=== PATIENT | female | born 1955 | race Caucasian/White ===

== ENCOUNTER 2017-08-10 02:04 | Emergency (ER) | payer BC ==
[2017-08-10] MEDS ORDERED: Iopamidol 370 76% 100 ML VIAL ONE (09:00)
[2017-08-10 15:01] LABS: CKMB 1.1 ng/mL (0-6.6); Troponin I Less than 0.010 ng/mL (< 0.028)
[2017-08-10 15:02] LABS: Anisocytosis SLIGHT = 6-15 cells (100X) (0-5/hpf); Band 33 % (5-11); Hemoglobin 8.4 g/dL (12.0-16.0); Hypochromia SLIGHT = 6-15 cells (100X) (0-5/hpf); Lymphocytes 3 % (21-51); MDiff Complete? YES; Mean Corpuscular HGB CONC 32.7 g/dL (32.0-36.0); Mean Corpuscular Hemoglobin 28.6 pg (27.0-31.0); Mean Corpuscular Volume 87.5 fl (81.0-99.0); Mean Platelet Volume 8.9 fL (7.4-10.4); Monocytes 6 % (0-10); Neutrophil 51 % (42-75); PLT Morphology Comment Appears Decreased; Platelet Count 74 thou/uL (130-400); Polychromasia SLIGHT = 2-3 cells (100X) (0-2/hpf); RBC Distribution Width 14.6 % (11.5-14.5); Reactive Lymphocytes 3 % (0-10); Red Blood Cell (RBC) Count 2.94 mill/uL (4.20-5.40); Reflex for Review?? YES; Tear Drops SLIGHT = 2-5 cells (100X) (0-1/hpf); White Blood Cell (WBC) Count 6.7 thou/uL (4.8-10.8)
--- NOTE | 2017-08-10 15:36 | CT ---
CT ARTERIOGRAM CHEST WITH IV CONTRAST AND 3D MIP IMAGING: Date: 08/10/17 HISTORY: Chest pain. FINDINGS: There is good contrast opacification of the pulmonary arteries and thoracic aorta with normal branchi ng of the great vessels from the aortic arch. No pleural fluid or pneumothorax are apparent. Enlarged lymph node at the right hilum measures up to 2.6 cm. Enlarged precarinal lymph node is 2.8 cm. Subca rinal lymph node measures up to 3.2 cm. Visualized portions of the upper abdomen show enlargement of the spleen to 18.0 cm. IMPRESSION: 1. No CT evidence of pulmonary embolus. 2. Enlarged mediastinal lymph nodes. 3. Severe splenomegaly. POS: [facility]
--- NOTE | 2017-08-10 16:58 | CT ---
CT ABDOMEN AND PELVIS WITH IV CONTRAST: 08/10/17 HISTORY: Fever. Abdominal pain. FINDINGS: Spleen is enlarged, at greater than 18 cm. Small wedge shaped areas of decreased density to the poste rior surface of the posterior aspect of the spleen measure up to 2.6 cm at the base. There is duplica tion of the renal collecting systems and ureters. Calcification apparent throughout the arterial stru ctures. Nonspecific lymph nodes are scattered throughout the abdomen and pelvis. Urinary bladder is u nremarkable. Lobulated mass at the right side of the uterus has the appearance of a fibroid. Lack of oral contrast limits evaluation of the bowel. There is no evidence of obstruction. Appendix i s not inflamed. IMPRESSION: 1. Severe splenomegaly. Wedge shaped areas of peripheral low density are likely related to splen ic infarcts. 2. Atherosclerosis. POS: [facility]
== END 2017-08-10 16:50 | disposition home or self-care (01) ==
LOC: SCSER 02:04 → ERS 14:01 → SCSER 16:50
DX: R16.1 Splenomegaly, not elsewhere classified (principal); D69.6 Thrombocytopenia, unspecified; R50.9 Fever, unspecified; I10 Essential (primary) hypertension; E78.5 Hyperlipidemia, unspecified
CPT/HCPCS: 36415; 71275; 74177; 82553; 83605; 84484; 85025; 85060; 85379; 87040; 93005; 94760

== ENCOUNTER 2017-08-26 13:36 | Outpatient (CLI) | payer BC ==
--- NOTE | 2017-08-26 17:00 | PET ---
PET CT: Date: 08/26/17 HISTORY: 62-year-old female with diffuse large B-cell lymphoma, extranodal and solid organ sites. Exam request ed for initial staging. TECHNIQUE: PET scanning with CT attenuation was performed from the base of the brain through the proximal thighs following the intravenous administration of 12 mCi F18-FDG in the left antecubital fossa. Imaging wa s performed after an uptake interval of 48 minutes. COMPARISON: None. CORRELATION: CT chest and abdomen dated 08/10/17. FINDINGS: Numerous hypermetabolic lymph nodes are seen, including the neck (maximum SUV 19 on the right), media stinum (SUV 17.4 subcarinal region), bilateral axillary (maximum SUV 8.4 on the left), right hilar (S UV 13.2), left paraaortic (SUV 7.8), left common iliac (SUV 7.8), left internal iliac (SUV 6.8), left external iliac (SUV 15.9), left obturator (SUV 15.3), and left inguinal (SUV 2.7) lymph nodes. There is diffusely increased uptake in the spleen with a maximum SUV of 14.4. There is focal hypermet abolic area in the tail of the pancreas with a SUV of 12. Hypermetabolic osseous lesions include the left iliac bone with a SUV of 20 and the right lateral 8th rib with a SUV of 3.4. There is physiologic activity in the GI and tracts, and the visualized portions of the brain. The CT scan used for attenuation correction demonstrates no evidence of pleural effusions or ascites. There is splenomegaly. IMPRESSION: Stage IV lymphoma. POS: [facility]
== END 2017-08-26 13:37 | disposition home or self-care (01) ==
LOC: PET 13:36
PROVIDERS: ATTEND Internal Medicine Hematology & Oncology
DX: C85.90 Non-Hodgkin lymphoma, unspecified, unspecified site (principal)
CPT/HCPCS: 78815; A9552

== ENCOUNTER 2017-08-27 08:31 | Day surgery (SDC) | payer BC ==
[2017-08-26 12:45] VITALS: BMI 28.8
[2017-08-26 13:52] LABS: #Eosinphils 0.1 thou/uL (0.0-0.7); #Lymphocytes 1.1 thou/uL (1.20-3.40); #Monocytes 0.9 thou/uL (0.11-0.59); #Neutrophils 4.8 thou/uL (1.40-6.50); %Basophils 0.5 % (0.0-1.0); %Eosinophils 1.5 % (0.0-10.0); %Lymphocytes 16.2 % (21.0-51.0); %Monocytes 12.7 % (0.0-10.0); %Neutrophils 69.1 % (42.0-75.0); Hemoglobin 8.1 g/dL (12.0-16.0); Mean Corpuscular HGB CONC 32.1 g/dL (32.0-36.0); Mean Corpuscular Hemoglobin 29.3 pg (27.0-31.0); Mean Corpuscular Volume 91.3 fl (81.0-99.0); Mean Platelet Volume 9.6 fL (7.4-10.4); Platelet Count 54 thou/uL (130-400); RBC Distribution Width 17.2 % (11.5-14.5); Red Blood Cell (RBC) Count 2.76 mill/uL (4.20-5.40)
[2017-08-26 14:09] LABS: Anion Gap 13 mmol/L (10-20); BUN (Urea Nitrogen) 24 mg/dL (9.8-20.1); Calc. Creatinine Clearance 0 mL/min (70-130); Calcium 8.3 mg/dL (7.8-10.44); Carbon Dioxide 24 mmol/L (23-31); Chloride 99 mmol/L (98-107); Estimated GFR-MDRD 70; Glucose 90 mg/dL (80-115); Potassium 4.5 mmol/L (3.5-5.1); Sodium 131 mmol/L (136-145)
--- NOTE | 2017-08-27 06:32 | HP ---
PRIMARY CARE PHYSICIAN: Dr. Mitchell. REFERRING PHYSICIAN: Dr. Howard Boggs. HISTORY OF PRESENT ILLNESS: A 62-year-old female referred by Dr. Boggs for MediPort. Dr. Boggs also desires a lymph node biopsy, we were planning for right supraclavicular node biopsy. Patient wa s seen in the emergency room for malaise, night sweats, and fever. On 08/20/[address] angio of t he chest with contrast revealing absence of pulmonary embolus, multiple enlarged mediastinal lymph no sam, and severe splenomegaly. CT scan of abdomen and pelvis reveals splenomegaly with small infarcts , uterine fibroid, and spleen was 18 cm. Patient underwent a bone marrow and findings consistent wit h probable large B cell lymphoma. Patient has suffered weight loss and anemia has stopped her lisino pril more than 3 weeks ago. Continues to experience blood pressure in the 80s to 70s. Dr. Boggs i s planning to initiate chemotherapy next week. We will be placing the MediPort and performed a right supraclavicular lymph node biopsy and due to her persistent weakness and hypotension and plan chemot herapy. We will plan transfusion of 2 units of blood during her surgery. She understands the risks and benefits of the surgery and consents. SOCIAL HISTORY: Tobacco one pack per day recently decreased to half a pack. She is followed by Dr. Eddy for cholesterol treatment. She is a 4, para 4 with three grandchildren in addition th at she has raised. MEDICATIONS: Aleve as needed, allopurinol 300 mg a day, ezetimibe 10 mg a day, lisinopril discontinu ed, Livalo 4 mg, multivitamins. PAST MEDICAL HISTORY: Hypertension, although resolved recently antihypertensives, psoriasis, and hep atitis B. PAST SURGICAL HISTORY: Laparoscopic tubal ligation, recent bone marrow. PHYSICAL EXAMINATION: VITAL SIGNS: Weight 176 pounds, 5 foot 4, blood pressure 87/50, pulse 101, 98.1 degrees. HEENT: Un remarkable. LUNGS: Clear to auscultation. CARDIAC: Regular rate and rhythm without murmur or gallop. ABDOMEN: Soft, nontender. Fullness in left lower quadrant is consistent with splenomegaly. EXTREMITIES: Unremarkable. Patient is pale in appearance. She has palpable radial pulses. She has lymphadenopathy, small in both groins. Nothing remarkable. Small lymphadenopathy, right axilla, le ft axilla without lymphadenopathy. Left neck with a small lymphadenopathy, few right neck multiple l ymphadenopathy, supraclavicular, and posterior triangle. ASSESSMENT AND PLAN: 1. B. cell lymphoma. We will plan right supraclavicular node biopsy. Risks of infection, benefits, infection, bleeding, and reoperation were explained. She consents. 2. Placement of MediPort. 3. Anemia with her ongoing hypertension, malaise, and plan chemotherapy. I have discussed with Dr. Boggs and she received 2 units of blood perioperatively tomorrow.
[2017-08-27] MEDS ORDERED: Ketorolac Tromethamine 30 MG/ML VIAL ONE (09:00)
[2017-08-27] MEDS ORDERED: Diprivan 0 ML ONE (10:26)
[2017-08-27] MEDS ORDERED: Bupivacaine 0.25% HCL 30 ML VIAL ONE (10:26)
[2017-08-27] MEDS ORDERED: Lidocaine 2% w/Epinephrine 1:200K 20 ML VIAL ONE (10:26)
[2017-08-27] MEDS ORDERED: Fentanyl 100 MCG/2 ML VIAL ONE (10:26)
[2017-08-27] MEDS ORDERED: Famotidine/PF 20 mg/2ml Vial ONE (10:40)
[2017-08-27] MEDS ORDERED: Ondansetron HCl/PF 4 MG/2 ML Vial ONE ×3 (10:40→15:12)
[2017-08-27] MEDS ORDERED: CEFAZOLIN/Water 2 GM/20 ML SYRINGE ONE (11:10)
--- NOTE | 2017-08-27 13:32 | RAD ---
UPRIGHT CHEST 1 VIEW: HISTORY: A 62-year-old female with a history of status post MediPort placement. COMPARISON: 08/08/17. FINDINGS: Right subclavian catheter and injection port in place. Mild increased markings bilaterally with some what less inspiration than on the prior study. No pneumothorax or pleural effusion or other signific ant post procedure complication. IMPRESSION: Right subclavian catheter and injection port. Increased linear and interstitial markings bilaterally with less inspiration than on the prior study, but no evidence for other acute process. POS: [facility]
--- NOTE | 2017-08-27 14:00 | OP ---
DATE OF PROCEDURE: 08/27/2017 PREOPERATIVE DIAGNOSES: B-cell lymphomas, right supraclavicular large node, deep cervical, deep to t he platysma, in need of MediPort access and antineoplastic chemotherapy access. POSTOPERATIVE DIAGNOSIS: B-cell lymphomas, right supraclavicular large node, deep cervical, deep to the platysma, deep to the platysma, in need of MediPort access and antineoplastic chemotherapy access . PROCEDURES: Right subclavian vein low profile MediPort, fluoroscopy used for placement. Supraclavic ular right deep lymph node biopsy 4 cm in diameter, submitted to pathology fresh. SURGEON: Luther Witt M.D. ANESTHESIA: General LMA. Local 0.5% Marcaine, 30 mL mixed with 1% Xylocaine with epinephrine, 30 mL . DESCRIPTION OF PROCEDURE: The patient taken to the operating room where under general LMA anesthesia , neck and chest were prepared with ChloraPrep, draped in routine fashion. Local anesthetic infiltra forrest into skin and subcutaneous tissue about the operative site. Infraclavicular right approach used to cannulate the right subclavian vein. J-wire threaded, Trocar catheter removed. Skin incised and enlarged sharply. Subcutaneous pocket created with blunt and sharp dissection using cautery for hemo stasis, and dilator and pull-away sheath placed over the J-wire under fluoroscopic visualization in t he superior vena cava and dilator and J-wire removed. Catheter placed through the pull-away sheath a nd tip position under fluoroscopic guidance in the superior vena cava and catheter tailored to length . Once it was in proper position, it was tailored to length, connected to the MediPort. MediPort pl aced in subcutaneous pocket and secured with 2 interrupted sutures of 3-0 Prolene. Subcutaneous tiss ues approximated with 3-0 Monocryl, skin with subdermal 4-0 Monocryl and MediPort accessed with Alfonso needle, aspirated blood, and flushed with heparinized saline solution. Port had been secured with 2 interrupted sutures of 3-0 Prolene prior to closure. Fluoroscopic images revealed good catheter and port placement. Supraclavicular right incision made and carried down through skin and platysma deep to the sternoclei domastoid and careful dissection of a large 4 cm node removed. Hemostasis was gained with the cauter y and it was submitted to pathology fresh. Wound closed by approximating subcutaneous tissues with 3 -0 Monocryl, skin with subdermal 4-0 Monocryl and DermaGlue applied.
[2017-08-27] MEDS ORDERED: Lidocaine 1% PF 5 ML VIAL ONE (15:12)
[2017-08-27] MEDS ORDERED: PHENYLEPHRINE-NS 100 MCG/ML 10 ML SYRINGE ONE (15:12)
[2017-08-27] MEDS ORDERED: Propofol 200 MG/20 ML VIAL ONE (15:12)
[2017-08-27] MEDS ORDERED: ePHEDrine/0.9% NaCl/PF SYRINGE 50 mg/10 ml ONE (15:12)
== END 2017-08-27 13:50 | disposition home or self-care (01) ==
LOC: SDC 08:31
PROVIDERS: ATTEND Specialist
PROC: 07B10ZX Excision of Right Neck Lymphatic, Open Approach, Diagnostic (ICD-10-PCS; principal; 2017-08-27)
PROC: 0JH63WZ Insertion of Totally Implantable Vascular Access Device into Chest Subcutaneous Tissue and Fascia, Percutaneous Approach (ICD-10-PCS; principal; 2017-08-27)
PROC: B518ZZA Fluoroscopy of Superior Vena Cava, Guidance (ICD-10-PCS; principal; 2017-08-27)
PROC: 02HV33Z Insertion of Infusion Device into Superior Vena Cava, Percutaneous Approach (ICD-10-PCS; principal; 2017-08-27)
DX: C83.31 Diffuse large B-cell lymphoma, lymph nodes of head, face, and neck (principal); F17.210 Nicotine dependence, cigarettes, uncomplicated; D64.9 Anemia, unspecified; I10 Essential (primary) hypertension; Z79.899 Other long term (current) drug therapy; Z98.890 Other specified postprocedural states
CPT/HCPCS: 36430; 71045; 76000; 80048; 85025; 86850; 86900; 86901; 88184; 88307; 88341; 88342; C1788; J0131; J1642; J1885; J2001; J2405; J2704; J3010; P9016; S0020; S0028

== ENCOUNTER 2017-09-10 09:30 | Day surgery (SDC) | payer BC ==
[2017-09-10] MEDS ORDERED: diphenhydrAMINE 25 MG CAP PO SCH (10:15)
[2017-09-10] MEDS ORDERED: Acetaminophen 500 MG TAB PO SCH (10:15)
[2017-09-10 11:34] VITALS: TEMP 98
[2017-09-10] MEDS ORDERED: Sodium Chloride 0.9% 20 ML ONE (13:05)
[2017-09-10 13:10] VITALS: BP 111/60
[2017-09-10 13:49] LABS: Hemoglobin 8.8 g/dL (12.0-16.0); Mean Corpuscular HGB CONC 32.7 g/dL (32.0-36.0); Mean Corpuscular Hemoglobin 28.4 pg (27.0-31.0); Mean Platelet Volume 7.3 fL (7.4-10.4); Platelet Count 156 thou/uL (130-400); RBC Distribution Width 16.9 % (11.5-14.5); Red Blood Cell (RBC) Count 3.11 mill/uL (4.20-5.40); White Blood Cell (WBC) Count 6.3 thou/uL (4.8-10.8)
[2017-09-10 14:13] LABS: Anisocytosis SLIGHT = 6-15 cells (100X) (0-5/hpf); Band 18 % (5-11); Dohle Bodies SLIGHT; Lymphocytes 9 % (21-51); MDiff Complete? YES; Metamyelocyte 1 % (0-0); Monocytes 5 % (0-10); Neutrophil 67 % (42-75); Nucleated RBC 1 % (0); PLT Morphology Comment Appears Adequate; Polychromasia MODERATE = 3-4 cells (100X) (0-2/hpf); Toxic Granulation SLIGHT
== END 2017-09-10 13:30 | disposition home or self-care (01) ==
LOC: ONC/OP 09:30
PROVIDERS: ATTEND Internal Medicine Hematology & Oncology
PROC: 30233N1 Transfusion of Nonautologous Red Blood Cells into Peripheral Vein, Percutaneous Approach (ICD-10-PCS; principal; 2017-09-10)
DX: C50.212 Malignant neoplasm of upper-inner quadrant of left female breast (principal); C79.51 Secondary malignant neoplasm of bone; D63.0 Anemia in neoplastic disease; I10 Essential (primary) hypertension; L40.9 Psoriasis, unspecified; F17.210 Nicotine dependence, cigarettes, uncomplicated; Z88.5 Allergy status to narcotic agent
CPT/HCPCS: 36415; 36430; 85025; 86850; 86900; 86901; A4216; P9016

== ENCOUNTER 2017-12-28 10:48 | Outpatient (CLI) | payer BC ==
--- NOTE | 2017-12-28 15:50 | PET ---
PET SCAN WITH CT ATTENUATION CORRECTION: HISTORY: Lymphoma. Patient has undergone chemotherapy. Last treatment in 12/13/17. COMPARISON: 08/06/17. TECHNIQUE: PET scanning with CT attenuation correction is performed from the base of the brain to the proximal t highs following the intravenous administration of 11.5 mCi F18-FDG. FINDINGS: HEAD/NECK: No abnormal FDG localization. Previously noted soft tissue neck lymphadenopathy/hypermetabolic lymph nodes have resolved. CHEST: Previously noted mediastinal hypermetabolic lymph nodes, hilar hypermetabolic lymph nodes, and left a xillary hypermetabolic lymph nodes have resolved. ABDOMEN/PELVIS: Previously noted hypermetabolic activity involving the spleen, hypermetabolic activity involving the tail of the pancreas, as well as hypermetabolic retroperitoneal lymph nodes have resolved. Previously noted splenomegaly has markedly improved. Currently, there is no evidence of splenomegaly. Spleen me asures 10.4 cm. OSSEOUS STRUCTURES: No abnormal FDG localization. Previously noted FDG avidity involving the left iliac bone has resolved . IMPRESSION: No abnormal FDG localization. Marked response to therapy. There is no evidence of residual disease. N o evidence of a new disease. Deauville score of 1. POS: [facility]
== END 2017-12-28 10:49 | disposition home or self-care (01) ==
LOC: PET 10:48
PROVIDERS: ATTEND Internal Medicine Hematology & Oncology
DX: C85.90 Non-Hodgkin lymphoma, unspecified, unspecified site (principal)
CPT/HCPCS: 78815; A9552

== ENCOUNTER 2018-04-18 07:49 | Outpatient (CLI) | payer BC ==
[2018-04-18] MEDS ORDERED: Gadobenate Dimeglumine 529 MG/1 ML (20ML VIAL) ONE (09:00)
--- NOTE | 2018-04-18 10:24 | MRI ---
PRE AND POSTCONTRAST ENHANCED MRI IMAGES OF CERVICAL SPINE: HISTORY: History of lymphoma, 200.70, and C83.39. FINDINGS: Multiplanar, multisequence pre- and postcontrast-enhanced MRI images of cervical spine were obtained. Images demonstrate no significant evidence of soft tissue neck lymphadenopathy. No evidence of obvious osseous lesions seen. The spinal cord is unremarkable with no evidence of cord masses. C1-2, C2-3: Unremarkable. C3-4: a MILD BROAD-BASED DISK BULGE IS SEEN. The central canal is patent. The neural foramen are p atent. C4-5: A mild broad-based disk bulge is seen resulting in mild compression of the thecal sac. The ne ural foramen are patent. C5-6: Disk desiccation is seen. There is a broad-based disk-osteophyte complex centrally compressin g the thecal sac resulting in a moderate degree of central and lateral recess stenosis. Minimal bila teral C5-6 neural foraminal narrowing is seen. C6-7: There is a mild broad-based disk bulge. No significant degree of central stenosis or neural f oraminal narrowing is seen. C7-T1: Unremarkable. IMPRESSION: Broad-based central disk bulges at C3-4, C4-5, and C5-6. Mild broad-based disk bulge is also seen at C6-7. No significant evidence of obvious metastatic disease or malignancy disease. POS: [facility]
== END 2018-04-18 07:50 | disposition home or self-care (01) ==
LOC: SCSMRI 07:49
PROVIDERS: ATTEND Internal Medicine Hematology & Oncology
DX: C83.39 Diffuse large B-cell lymphoma, extranodal and solid organ sites (principal); M50.91 Cervical disc disorder, unspecified, high cervical region
CPT/HCPCS: 72156; A9579

== ENCOUNTER 2018-05-25 10:47 | Day surgery (SDC) | payer BC ==
--- NOTE | 2018-05-25 10:52 | RAD ---
RADIOGRAPH CHEST 2 VIEWS: Date: 05/25/2018 Time: 9:10 a.m. HISTORY: A 62-year-old female with lymphoma who presents with dyspnea. COMPARISON: Chest radiograph from 08/27/[address] for PET scan from 12/28/2017. FINDINGS: There is a large left pleural effusion occupying approximately 75% of the left hemithoracic cavity, c ausing severe atelectasis of the underlying left lung. The left apex is spared and well aerated. Th ere is no pleural effusion on the right side. The right lung is clear. The left pleural effusion is new since both prior studies. Right subclavian implantable vascular access port with the distal tip in the upper portion of the right atrium. No pulmonary edema or pneumothorax. IMPRESSION: New large left pleural effusion with underlying severe left atelectasis. MIKAELA [] POS: [facility]
[2018-05-25] MEDS ORDERED: Lidocaine 1% (PF) 30 ML VIAL ONE (12:46)
[2018-05-25] MEDS ORDERED: Lidocaine 2% w/Epinephrine 1:200K 20 ML VIAL ONE (12:46)
--- NOTE | 2018-05-25 13:26 | OP ---
DATE OF PROCEDURE: 05/25/2018 PROCEDURE: Thoracentesis. HELICOPTER SPECIALIST: Dr. Claude Raman INDICATION: New left large pleural effusion 5 months after treatment for lymphoma. The patient was placed in a sitting position. Consent forms were signed. Left posterior hemithorax was prepped with chlorhexidine. Two interspaces were anesthetized with a total of 10 mL of 1% lidoca ine. Fluid was localized with a 22 gauge needle. A small incision was made. An 8 Filipino safety cat heter was inserted into the pleural space without difficulty. 900 mL of dark yellow pleural fluid wa s evacuated. The patient tolerated the procedure well and there is no clinical indication of a pneum othorax. The patient will call me on Wednesday for results of pleural fluid.
[2018-05-25 14:14] LABS: Pleural Fluid, Amylase Less than 30 U/L (Not Available); Pleural Fluid, Glucose Less than 20 mg/dL; Pleural Fluid, LDH 846 U/L (Not Available); Pleural Fluid, Protein 3.5 g/dL
--- NOTE | 2018-05-25 14:20 | HP ---
HISTORY: Ms. Wallace is a 62-year-old female referred by Dr. Gallegos for shortness of breath. She has a history of a B-cell lymphoma that was treated from August to December with chemotherapy. She had a followup PET imaging in December that showed no active disease. For 3-4 weeks she has been having increasing shortness of breath, subsequently was evaluated by her ear, nose and throat surgeon and then referred to us for shortness of breath. PAST MEDICAL HISTORY: 1. Remarkable for MediPort placement. 2. History of being diagnosed with lymphoma earlier this year. 3. History of a lipid disorder followed by Dr. Eddy. 4. History of getting chemotherapy with Adriamycin. 5. History of anemia. 6. History of hypertension. SOCIAL HISTORY: She is half pack a day smoker. She is not a daily drinker. ALLERGIES: She has no drug allergies. FAMILY HISTORY: Negative for lung disease at an early age. REVIEW OF SYSTEMS: Ten points otherwise negative. She has had no purulent sputum or hemoptysis. PHYSICAL EXAMINATION: VITAL SIGNS: In the office, her pulse was in the 70s, respiratory rates in the teens. Oximetry is 9 6-97 on room air. HEAD AND NECK: Unremarkable. She had absent breath sounds 2/[address] up on the left. HEART: Regular rhythm, no S3. S1 and S2 are normal. I did not hear a murmur. ABDOMEN: Soft and nontender. She is complaining of left upper quadrant pain that resembles the pain she had when she had splenomegaly before her lymphoma treatment. EXTREMITIES: Without clubbing, cyanosis, or edema. Chest radiograph shows large left effusion. Plan for thoracentesis. The differential is obviously broad. It is early for her to have recurrence of her lymphoma. It is also early to have Adriamycin-induced cardiac toxicity. Given that she is a smoker, non-small cell lung cancer is always in the differenti al. Thoracentesis hopefully will help sort through this.
[2018-05-25 14:57] LABS: BF Color Red; Body Fluid Source THORACENTESIS FLD; Clarity Cloudy/Turbid (Clear); RBC Count-Automated 29000 /cumm; Tube # EDTA; WBC/NonHematic-Auto 15100 /cumm
[2018-05-25 15:41] LABS: Cell Count Non Hematic 89 %; Lymphocytes 11 %
== END 2018-05-25 13:40 | disposition home or self-care (01) ==
LOC: RAD 10:47
PROVIDERS: ATTEND Internal Medicine Critical Care Medicine
PROC: 0W9B3ZZ Drainage of Left Pleural Cavity, Percutaneous Approach (ICD-10-PCS; principal; 2018-05-25)
DX: J90 Pleural effusion, not elsewhere classified (principal); F17.210 Nicotine dependence, cigarettes, uncomplicated; E78.9 Disorder of lipoprotein metabolism, unspecified; I10 Essential (primary) hypertension; Z85.72 Personal history of non-Hodgkin lymphomas; Z92.21 Personal history of antineoplastic chemotherapy; Z79.899 Other long term (current) drug therapy
CPT/HCPCS: 32554; 71046; 82150; 82945; 83615; 83986; 84157; 85060; 87070; 87205; 89051; J2001

== ENCOUNTER 2018-05-31 09:38 | Outpatient (CLI) | payer BC ==
--- NOTE | 2018-05-31 12:30 | RAD ---
CHEST TWO VIEWS: HISTORY: Dyspnea. COMPARISON: 05/25/2018 FINDINGS: Persistent opacification of the left hemithorax. There is obscuration of the left heart border and l eft hemidiaphragm. Stable right-sided Mediport catheter. No pneumothorax. IMPRESSION: Stable opacification of the left hemithorax. POS: [facility]
== END 2018-05-31 09:39 | disposition home or self-care (01) ==
LOC: RAD 09:38
PROVIDERS: ATTEND Internal Medicine Critical Care Medicine
DX: R06.00 Dyspnea, unspecified (principal); R91.8 Other nonspecific abnormal finding of lung field
CPT/HCPCS: 71046

== ENCOUNTER 2018-05-31 10:31 | Inpatient (IN) | payer BC ==
[2018-05-31 11:29] VITALS: BMI 28.5
[2018-05-31 13:25] LABS: ALT (SGPT) 33 U/L (8-55); AST (SGOT) 39 U/L (5-34); Albumin 3.5 g/dL (3.4-4.8); Alkaline Phosphatase 100 U/L (40-150); Anion Gap 18 mmol/L (10-20); BUN (Urea Nitrogen) 9 mg/dL (9.8-20.1); Bilirubin, Total 0.5 mg/dL (0.2-1.2); Calc. Creatinine Clearance 91 mL/min (70-130); Calcium 9.4 mg/dL (7.8-10.44); Carbon Dioxide 22 mmol/L (23-31); Chloride 96 mmol/L (98-107); Estimated GFR-MDRD 78; Globulin 2.1 g/dL (2.4-3.5); Glucose 83 mg/dL (80-115); Potassium 4.3 mmol/L (3.5-5.1); Protein, Total 5.6 g/dL (6.0-8.3); Sodium 132 mmol/L (136-145)
[2018-05-31 13:29] LABS: Band 3 % (5-11); Eosinophils 1 % (0-10); Lymphocytes 2 % (21-51); MDiff Complete? YES; Mean Corpuscular Hemoglobin 28.8 pg (27.0-31.0); Mean Corpuscular Volume 87.3 fL (78.0-98.0); Mean Platelet Volume 6.4 fL (7.4-10.4); Metamyelocyte 1 % (0-0); Monocytes 1 % (0-10); Neutrophil 7 % (42-75); PLT Morphology Comment Appears Adequate; Platelet Count 233 thou/uL (130-400); RBC Distribution Width 13.5 % (11.5-14.5); RBC Morphology Normal; Red Blood Cell (RBC) Count 4.52 mill/uL (4.20-5.40); Reflex for Review?? YES
[2018-05-31] MEDS ORDERED: Acetaminophen/Codeine 30-300mg Tablet PO PRN (14:06)
[2018-05-31] MEDS ORDERED: Laxative Of Choice PO PRN (14:07)
[2018-05-31 14:54] LABS: Bilirubin Negative (Negative); Blood, Urine Negative (Negative); Clarity CLEAR (Clear); Glucose, Urine (Dipstick) Negative (Negative); Leukocyte Negative (Negative); Nitrite Negative (Negative); Protein, Urine (Dipstick) Negative (Neg-Trace); Specific Gravity, Urine 1.009 (1.002-1.036); Urobilinogen 0.2 mg/dL (0.2-1.0)
[2018-05-31 14:57] LABS: Bacteria/HPF None Seen HPF (None Seen); Hyaline Casts/LPF 0-3 HYALINE CAST LPF (0-3 Hyaline); Pathc Cast-AUWi Flag 0.14 (0-2.49); RBC/HPF 0-3 HPF (0-3); Squamous Epithelial 0-3 HPF (0-3); WBC/HPF 0-3 HPF (0-3)
[2018-05-31] MEDS ORDERED: Bupivacaine HCl 0.5%/Epinephrine 1:200,000/PF 30 ml Vial ONE (15:37)
[2018-05-31] MEDS ORDERED: Fluconazole 100 MG TAB PO SCH (16:00)
[2018-05-31] MEDS ORDERED: PROPOFOL 200 MG/20 ML VIAL ONE (16:49)
[2018-05-31] MEDS ORDERED: Lidocaine 1% PF 5 ML VIAL ONE (16:49)
[2018-05-31] MEDS ORDERED: Glycopyrrolate 0.2 MG/ML 5 ML SYRINGE ONE (16:49)
[2018-05-31] MEDS ORDERED: CEFAZOLIN 2 GM/50 ML BAG ONE (17:02)
--- NOTE | 2018-05-31 17:27 | CON ---
DATE OF CONSULTATION: 05/31/2018 REASON FOR CONSULTATION: The patient with a recurrent probable malignant left pleural effusion. DESCRIPTION OF HOSPITAL STAY: Ms. Wallace is a 62-year-old woman with a history of lymphoma, who has been treated. She has had a large left pleural effusion, which was tapped approximately a week ago by Dr. Raman. She was found to have no malignant cells, but the effusion has been rapidly recurrent. I have been asked to see her for definitive treatment. PAST MEDICAL HISTORY: 1. Lymphoma. 2. Dyslipidemia. 3. History of anemia. 4. Hypertension. PAST SURGICAL HISTORY: Right-sided MediPort placement. SOCIAL HISTORY: She smokes half pack of cigarettes a day. ALLERGIES: TRAMADOL. REVIEW OF SYSTEMS: A 10-point review of systems is performed and is negative except as stated above. PHYSICAL EXAMINATION: GENERAL: This is a well-developed and well-nourished woman, resting comfortably in bed on 2 L of oxygen. She says she is chronically short of breath when the fluid builds up. VITAL SIGNS: Temperature is 98.3, pulse is 90 and regular, and blood pressure is 111/73. LUNGS: Diminished breath sounds throughout the left chest. HEART: Rhythm is regular. ABDOMEN: Soft and nontender. EXTREMITIES: No edema. ASSESSMENT AND PLAN: Recurrent left pleural effusion, for thoracoscopy, biopsy, pleur-x catheter placement Job ID: [id number] [facility]
[2018-05-31] MEDS ORDERED: Midazolam HCl 2 mg/2 ml Vial ONE (18:32)
[2018-05-31] MEDS ORDERED: Fentanyl 250 MCG/5 ML VIAL ONE (18:32)
[2018-05-31] MEDS ORDERED: Promethazine HCl 25 MG/ML VIAL SLOW IVP PRN (20:26)
[2018-05-31] MEDS ORDERED: Ondansetron HCl/PF 4 MG/2 ML Vial IVP PRN (20:26)
[2018-05-31] MEDS ORDERED: Promethazine HCl 25 MG/ML VIAL IM PRN (20:26)
[2018-05-31] MEDS ORDERED: Fentanyl 100 MCG/2 ML VIAL ONE ×2 (20:38→20:53)
[2018-05-31] MEDS ORDERED: HYDROcodone/Acetaminophen 5/325 mg Tablet PO PRN ×2 (21:35)
[2018-05-31] MEDS ORDERED: Fentanyl 100 MCG/2 ML VIAL SLOW IVP PRN (21:35)
[2018-05-31] MEDS: Sodium Chloride 0.9% 1,000 ML IV SCH (21:38)
[2018-05-31] MEDS ORDERED: CEFAZOLIN 2 GM in Sodium Chloride 0.9% 100 ML IVPB SCH (22:00)
[2018-05-31] MEDS: Acetaminophen/Codeine 30-300mg Tablet PO PRN (22:11)
[2018-05-31] MEDS: Fluconazole 100 MG TAB PO SCH (22:11)
--- NOTE | 2018-05-31 22:23 | RAD ---
FRONTAL RADIOGRAPH CHEST: 05/31/18 COMPARISON: 08/27/17 and 05/31/18. HISTORY: Status post left thoracoscopy. FINDINGS: There is a right sided Port-A-Cath, distal tip overlying the region of the proximal right atrium. The re is increased density in the right paratracheal region which could signify lymphadenopathy. There is a new left sided chest tube extending into the left lung apex. There is hazy increased densi ty in the lateral mid left lung zone and in the left lung base. Large volume left pleural effusion se en on the prior study performed earlier on 05/31/18 is essentially absent following surgery. IMPRESSION: Postoperative changes. Residual nonspecific parenchymal opacity in the left base. Soft tissue density in right paratracheal region may signify adenopathy. POS: [facility]
--- NOTE | 2018-06-01 01:00 | HP ---
DATE: 05/31/2018 HISTORY OF PRESENT ILLNESS: Ms. Wallace is a 62-year-old female who was seen me by last week and brought over for a thoracentesis. She has a history of B cell lymphoma and finished treatment this summer. She has had progressive symptoms for about 3-1/2 to 4 weeks, but did not tell anybody until the last week prior to her visit with me. She actually said in the office that she felt like similar to how she felt when she was diagnosed with her lymphoma. She was complaining of left upper quadrant discomfort. PAST MEDICAL HISTORY: Remarkable for lipid disorder, hypertension, and anemia associated with chemotherapy and hepatitis. She did have bone marrow involvement with her lymphoma. SOCIAL HISTORY: She is a half a pack a day smoker. FAMILY HISTORY: Positive for vascular disease and arthritis. REVIEW OF SYSTEMS: 10-point review of systems completed, otherwise negative. Since she was seen by me, she received enough relief from her thoracentesis to where she could lay down and sleep, but the last few nights, she has not been doing well. She woke up at 1:30 in the morning, started to come to the emergency room, but decided to wait till the office open. PHYSICAL EXAMINATION: GENERAL: She was complaining of left upper quadrant discomfort. VITAL SIGNS: On exam today, her heart rate was 80, respiratory rate was 18, and oximetry was 96% on room air. HEENT: Pupils were equal. Sclerae anicteric. NECK: Supple. LUNGS: Remarkable for absent breath sounds in the left. HEART: Regular rhythm. S1 and S2 are normal. ABDOMEN: Soft and nontender. EXTREMITIES: Without clubbing, cyanosis, or edema. DIAGNOSTIC DATA: Chest radiograph shows recurrence of the effusion. Pathology was not back yet this morning even though thoracentesis was done last Wednesday. ASSESSMENT AND PLAN: I called and discussed it with the pathologist, who told me the cytology was negative. i was told special stains would be done. I admitted her to the hospital for pleural biopsy. My initial index of suspicion is that we were dealing with the new malignancy such as an adenocarcinoma involving the pleural space. Prior to going to the operating room for thoracoscopy this afternoon, I was called by Pathology, who informed me that she had markers consistent with her lymphoma and also had peripheral smear finding suggestive of recurrence of her lymphoma. Her thoracoscopy has been cancelled, but after talking with Dr. Fountain, we planned to place a PleurX catheter in her. Oncology has been notified (Dr. Boggs) and he will make recommendations for outpatient therapy. This is a 50 minute H&P consult with greater than 50% of time spent on unit in coordination of care. Job ID: [id number] [facility]
[2018-06-01] MEDS: Acetaminophen/Codeine 30-300mg Tablet PO PRN ×5 (02:32→21:20)
[2018-06-01] MEDS: CEFAZOLIN 2 GM/50 ML-DEXTROSE 2 GM in Premix Bag 1 BAG IVPB SCH ×3 (02:34→18:15)
--- NOTE | 2018-06-01 04:23 | OP ---
DATE OF PROCEDURE: 05/31/2018 PREOPERATIVE DIAGNOSIS: Rapidly recurrent left pleural effusion with history of lymphoma. POSTOPERATIVE DIAGNOSIS: Rapidly recurrent left pleural effusion with history of lymphoma. PROCEDURES PERFORMED: Left thoracoscopy with evacuation of large pleural effusion, pleural biopsy, and PleurX catheter placement. ANESTHESIA: General endotracheal. ESTIMATED BLOOD LOSS: Minimal. DRAINS: PleurX catheter. DESCRIPTION OF PROCEDURE: After consent was obtained, the patient was brought to the operating room and placed in supine position on the operating table. Appropriate landmarks were placed and general endotracheal anesthesia induced. The patient was bunked on the left and rotated to the right. Joints were properly supported. Left chest was prepped and draped in the usual sterile fashion. Two working incisions were placed in the submammary crease. Thoracoscope was inserted and 2200 mL of bloody fluid evacuated. Pleural biopsy was taken of an abnormal appearing area of pleura. The lung was completely free and with this, it would expand nicely. PleurX catheter was then tunneled and placed within the pleural cavity. Lung was inflated and filled the cavity nicely. PleurX catheter was left on suction while the port sites were injected with 0.5% Marcaine with epinephrine. Sites were then closed in layers and Dermabond applied to the skin. Sterile dressing was applied. The patient tolerated the procedure well, she was awakened, extubated, and transferred to recovery room in stable condition. Job ID: [id number]
[2018-06-01] MEDS: Sodium Chloride 0.9% 1,000 ML IV SCH ×2 (04:37→11:02)
[2018-06-01] MEDS: Polyethylene Glycol 3350 17 GM Packet PO SCH (08:47)
--- NOTE | 2018-06-01 15:56 | CT ---
CHEST AND ABDOMEN AND PELVIS CT WITH CONTRAST: INDICATION: History of recurrent lymphoma, pleural fluid. FINDINGS: There is a multifocal abnormal mass-like increased density which is centered throughout the anterior mediastinum, encompassing the pericardium, and extending into the pleural space of the left hemithora x and along the peritoneal linin of the left upper abdomen. There are interspersed locules of air de nsity. Findings are superimposed upon a multifocal necrotic-appearing consolidation of the left lung indicative of necrotizing pneumonia which contains air bronchograms and there is adjacent complex pl eural fluid indicative of empyema. There is an indwelling small-caliber left chest tube present. Mu ltifocal diffuse bilateral pulmonary parenchymal opacification may relate to atypical pneumonia. The re is extensive adenopathy of the chest involving the mediastinum and left hilum. Discrete size yadira urements of the enlarged lymph nodes are difficult due to confluent nature as well as the surrounding , above-described pleural and mediastinal disease. There are numerous retroperitoneal lymph nodes, m easuring up to 2.7 cm in diameter, anterior to the left kidney. No focal hepatic or splenic lesion. No acute pancreatic inflammatory process. No discrete adrenal gland or evidence of hydronephrosis. There is focal cortical defect laterally involving the right kidney, chronic in appearance. There i s mild free pelvic fluid with heterogeneity of the adjacent uterus. The urinary bladder is markedly distended. Small bowel is not obstructed. The colon is diffusely unopacified limiting assessment. No free air. Diffuse vascular disease is present. There are scattered osseous degenerative changes. IMPRESSION: 1. Diffuse abnormal increased density involving the mediastinum, left hemithorax, and left upper abd omen. A component likely relates at least in part to soft tissue masses from lymphoma. A superimpos ed multifocal hematoma and/or infected fluid process may also be present, given the ill-defined and h igh-density, fluid-like morphology. 2. Necrotizing left pneumonia with associated empyema. 3. Multifocal air density of the left chest wall and left pleural space related to an indwelling lef t thoracostomy tube. There is also a punctate locule of air at the anterior mediastinum. 4. Extensive adenopathy of the chest and abdomen. 5. Free pelvic fluid. 6. Multifocal atypical bilateral pneumonia. POS: [facility]
[2018-06-01] MEDS ORDERED: Iopamidol 370 76% 100 ML VIAL ONE (16:45)
--- NOTE | 2018-06-01 18:19 | PRG ---
DATE OF SERVICE: 06/01/2018 SUBJECTIVE: Ms. Wallace has been educated for the first time about her PleurX catheter. She was seen by Oncology, who recommended a lumbar puncture. She had a panic attack after the oncologist left about idea of a lumbar puncture, so consulted Anesthesia and they have agreed to take her down to special procedures and sedate her during the lumbar puncture. OBJECTIVE: VITAL SIGNS: She is afebrile. Heart rate is 99, respiratory rate is 20, oximetry is 90%, blood pressure is 104/68. LUNGS: With improved breath sounds in the left. HEART: Regular rhythm. ABDOMEN: Soft. IMAGING STUDIES: She had chest, abdomen, and pelvis CT today; mediastinum, hemithorax, and upper abdomen have lymphoma which would account for her discomfort in her left upper quadrant. It is unlikely this is a pneumonia. The radiology reports this as possible. She has abdominal adenopathy as expected. She has patchy bilateral infiltrates, which certainly could be a lymphoma. I doubt again that she has an atypical pneumonia. Clinically, it is more likely, this is all related to an aggressive lymphoma. We will keep her in the hospital tonight to make further recommendations. Job ID: [id number] MTDD
[2018-06-01] MEDS: Fluconazole 100 MG TAB PO SCH (21:18)
[2018-06-02] MEDS: Acetaminophen/Codeine 30-300mg Tablet PO PRN ×3 (04:36→19:39)
[2018-06-02] MEDS: Sodium Chloride 0.9% 1,000 ML IV SCH (04:38)
[2018-06-02] MEDS: Polyethylene Glycol 3350 17 GM Packet PO SCH (08:30)
--- NOTE | 2018-06-02 08:54 | CON ---
DATE OF CONSULTATION: 06/01/2018 REASON FOR CONSULTATION: Diffuse large B-cell lymphoma. HISTORY OF PRESENT ILLNESS: A 62-year-old female with history of diffuse large B-cell lymphoma, status post R-CHOP chemotherapy with last treatment in December 2017, with complete response to treatment, presenting with progressive shortness of breath and left upper quadrant pain and pain over the left chest. Upon presentation, the patient was found to have a large left-sided pleural effusion and was evaluated by Dr. Raman and Dr. Marty Fountain. The patient had had a thoracentesis and the pleural effusion was rapidly recurrent and Dr. Fountain performed evacuation of the pleural effusion with pleural biopsy and PleurX catheter placement. Approximately, 2200 mL of bloody fluid was evacuated. Preliminary cytology reveals recurrent lymphoma in the pleural fluid. The patient states her breathing has improved, but still has pain which she states is controlled with her current pain medicines. The patient does complain of worsening fatigue over the last couple of months and night sweats that recurred approximately 1 month ago. She had these months with her lymphoma prior. The patient denies any swollen lymph nodes or other symptoms. REVIEW OF SYSTEMS: Ten-point review of systems negative except as per HPI. PAST MEDICAL HISTORY: Diffuse large B-cell lymphoma, hypertension. FAMILY HISTORY: Family history of cancer. SOCIAL HISTORY: Smokes half pack per day. ALLERGIES: TIZANIDINE AND TRAMADOL. CURRENT MEDICATIONS: Reviewed. PHYSICAL EXAMINATION: VITAL SIGNS: Temperature 98.4, pulse 93, respirations 24, saturating 93% on 2.5 L by nasal cannula, blood pressure 110/67. GENERAL APPEARANCE: The patient is lying in bed, in no acute distress. HEENT: Normocephalic, atraumatic. Sclerae are anicteric. CARDIOVASCULAR: S1 and S2. Regular rate and rhythm without murmurs, rubs, or gallops. LUNGS: Respirations nonlabored. Decreased breath sounds over the left lower lung field. Otherwise, clear to auscultation bilaterally without any wheezing. ABDOMEN: Soft, nondistended, nontender. LYMPHATICS: No palpable lymphadenopathy in the cervical, axillary, inguinal chains, or any epitrochlear lymphadenopathy. EXTREMITIES: No peripheral edema. NEUROLOGIC: Cranial nerves II through XII grossly intact. Otherwise nonfocal. PSYCHIATRIC: Awake, alert, and oriented x3. LABORATORY DATA: White blood cells 43.0 with 7% neutrophils, 3% bands, 2% lymphocytes, 1% monocytes, 1% eosinophils, and 1% metamyelocytes and 85% with lymphoma-like cells. Peripheral smear shows numerous large atypical cells with high nucleus to cytoplasmic ratio apparently 85% bimanual differential. Hemoglobin 13.0, platelets 233. Sodium 132, potassium 4.3, BUN 9, creatinine 0.75, bilirubin 0.5 , AST 39, ALT 33, alkaline phosphatase 100, albumin 3.5. IMAGING DATA: Chest x-ray dated May 31, 2018, after left thoracoscopy shows postop changes and residual nonspecific parenchymal opacity in the left base, soft tissue density in the right trachea region may signify adenopathy. ASSESSMENT AND PLAN: A 62-year-old female with history of diffuse large B-cell lymphoma, status post R-CHOP chemotherapy with complete response, last treatment in December 2017, presenting with worsening shortness of breath and large rapidly recurrent left-sided pleural effusion, status post PleurX placement and drainage of approximately 2200 mL of bloody fluid. Cytology of the fluid was positive for diffuse large B-cell lymphoma. 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 The patient has a very high risk lymphoma and requires second line chemotherapy and autologous stem cell transplant vs CAR-T therapy. I discussed this with the patient and her as well as Dr. Boggs. The patient does require restaging with CT of the chest, abdomen, and pelvis, LP, BMBx, and will need PET scan upon discharge from the hospital. Dr. Boggs has discussed her case with Dr. Beckman at [facility] in [place] who has recommended R-ICE induction chemotherapy. We will follow this patient with you. Thank you for this consult. Job ID: [id number] [facility]
[2018-06-02 12:05] VITALS: BP 99/63; TEMP 98.2
[2018-06-02] MEDS ORDERED: Midazolam HCl 2 mg/2 ml Vial ONE (14:01)
[2018-06-02] MEDS ORDERED: Sodium Chloride 0.9% 10 ML ONE (14:12)
[2018-06-02 14:56] LABS: CSF Source CSF; Clarity Clear (Clear); RBC Count - Manual 12 /cumm (None Seen); Tube # 4; WBC/NonHematics Count - Manual 1 /cumm (0-5)
[2018-06-02 14:57] LABS: Color Of CSF Supernatant COLORLESS (Colorless); Tube # 1; Unspun CSF Color PINK (Colorless)
[2018-06-02 15:01] LABS: CSF, Glucose 62 mg/dl (40-70); CSF, Protein 22 mg/dL (15-40)
--- NOTE | 2018-06-03 18:36 | DIS ---
DATE OF ADMISSION: 05/31/2018 DATE OF DISCHARGE: 06/02/2018 Recurrent lymphoma, status post placement of PleurX drainage catheter and status post lumbar puncture today. The results of lumbar puncture are pending from the cytology standpoint. The fluid was relatively acellular. There was 1 white cell, 12 red cells, glucose was 62, and protein was 22. Please see history and physical for details. Briefly, Ms. Wallace presented with new pleural effusion with several weeks of shortness of breath. She was admitted for further workup and care. I have seen her last week and tapped her effusion, and it came back rapidly. So, I felt placement of drainage catheter or pleurodesis would be the next step. The drainage catheter is probably the best option. She is an excellent patient, very knowledgeable and compliant. She should do well with PleurX catheter. This was placed 2 days ago. She was very nervous about lumbar puncture. So, we were unable to coordinate with Anesthesia yesterday the lumbar puncture. This was done today by anesthesiologist. I am very grateful for his help with this. This fluid was sent for the appropriate studies. She will follow up with the oncologist next week. I did write a prescription for Tylenol No. 3 for her left-sided pain she had when she came in. She is almost out of this. I gave her 100 with no refills, one p.o. q.i.d. p.r.n. She will continue with her other home medicines per Oncology. Job ID: [id number]
== END 2018-06-02 20:14 | disposition home or self-care (01) | DRG 824 ==
LOC: T4-B 10:33
PROVIDERS: ADMIT Internal Medicine Critical Care Medicine; ATTEND Internal Medicine Critical Care Medicine
PROC: 0W9B40Z Drainage of Left Pleural Cavity with Drainage Device, Percutaneous Endoscopic Approach (ICD-10-PCS; principal; 2018-05-31)
PROC: 0BBP4ZX Excision of Left Pleura, Percutaneous Endoscopic Approach, Diagnostic (ICD-10-PCS; 2018-05-31)
PROC: 009U3ZX Drainage of Spinal Canal, Percutaneous Approach, Diagnostic (ICD-10-PCS; 2018-06-02)
DX: C83.30 Diffuse large B-cell lymphoma, unspecified site (principal); J91.0 Malignant pleural effusion; I10 Essential (primary) hypertension; F17.210 Nicotine dependence, cigarettes, uncomplicated; E78.5 Hyperlipidemia, unspecified; Z92.21 Personal history of antineoplastic chemotherapy; Z79.899 Other long term (current) drug therapy
CPT/HCPCS: 36415; 62272; 71045; 71046; 71260; 74177; 80053; 81001; 82945; 83880; 84157; 85025; 85060; 87070; 87205; 88112; 88184; 88305; 88341; 88342; 88360; 89051; 93306; C1729; J0670; J0690; J2001; J2250; J2704; J3010; J7050

== ENCOUNTER 2018-06-08 10:26 | Inpatient (IN) | payer BC ==
[2018-06-08] MEDS ORDERED: Rasburicase 3 MG in Sodium Chloride 0.9% 50 ML IVPB SCH (14:00)
[2018-06-08] MEDS ORDERED: Acetaminophen/Codeine 30-300mg Tablet PO PRN ×2 (14:19→15:21)
[2018-06-08] MEDS: Sodium Bicarbonate 100 MEQ in Dextrose 5% in Water 1,000 ML IV SCH (14:29)
[2018-06-08] MEDS: Acetaminophen/Codeine 30-300mg Tablet PO PRN ×3 (14:40→23:30)
[2018-06-09] MEDS: Acetaminophen/Codeine 30-300mg Tablet PO PRN ×3 (03:41→11:18)
[2018-06-09] MEDS: Sodium Bicarbonate 100 MEQ in Dextrose 5% in Water 1,000 ML IV SCH (04:55)
[2018-06-09] MEDS ORDERED: Acetaminophen 500 MG TAB PO SCH ×2 (06:00→18:45)
[2018-06-09] MEDS ORDERED: diphenhydrAMINE 25 MG in Sodium Chloride 0.9% 50 ML IVPB SCH (06:00)
[2018-06-09 06:08] LABS: ALT (SGPT) 20 U/L (8-55); AST (SGOT) 43 U/L (5-34); Albumin 2.9 g/dL (3.4-4.8); Alkaline Phosphatase 138 U/L (40-150); Anion Gap 13 mmol/L (10-20); BUN (Urea Nitrogen) 6 mg/dL (9.8-20.1); Bilirubin, Total 0.5 mg/dL (0.2-1.2); Calc. Creatinine Clearance 94 mL/min (70-130); Calcium 8.8 mg/dL (7.8-10.44); Carbon Dioxide 30 mmol/L (23-31); Chloride 93 mmol/L (98-107); Estimated GFR-MDRD 85; Globulin 2.1 g/dL (2.4-3.5); Glucose 91 mg/dL (80-115); Potassium 4.1 mmol/L (3.5-5.1); Sodium 132 mmol/L (136-145); Uric Acid 8.5 mg/dL (2.6-6.0)
[2018-06-09 06:19] LABS: Phosphorus 1.4 mg/dL (2.3-4.7)
[2018-06-09] MEDS ORDERED: RITUXIMAB IVPB SCH (08:00)
[2018-06-09] MEDS ORDERED: SODIUM CHLORIDE 0.9% IVPB SCH (08:00)
[2018-06-09] MEDS ORDERED: Rasburicase 3 MG in Sodium Chloride 0.9% 50 ML IVPB SCH (08:00)
[2018-06-09] MEDS ORDERED: Gadobenate Dimeglumine 529 MG/1 ML (20ML VIAL) ONE (10:52)
--- NOTE | 2018-06-09 14:23 | MRI ---
BRAIN MRI WITH AND WITHOUT CONTRAST: Date: 06/09/18 HISTORY: Lymphoma, CSF involvement. Omaya as soon as possible. COMPARISON: None. FINDINGS: No hemorrhage on the axial gradient echo sequence. Appropriate T1 marrow signal intensity of the calv arium. Midline brain parenchymal structures are unremarkable. T2 and FLAIR white matter hyperintensities due to chronic small vessel ischemic change. Central arterial flow-voids are maintained. Absent restricted diffusion. Note is made of a partially empty sella. Partial opacification of the mastoid air cells. Adequate aeration of the paranasal sinuses. No pathologic enhancement of the brain parenchyma. IMPRESSION: 1. Chronic small vessel ischemic change of white matter. 2. Absent restricted diffusion. No acute infarct. 3. No pathologic enhancement of the brain parenchyma. POS: [facility]
[2018-06-09] MEDS: diphenhydrAMINE 50 MG/ML VIAL IVP PRN ×2 (16:25→16:41)
[2018-06-09] MEDS ORDERED: Dexamethasone 4 mg/ml Vial ONE (16:39)
[2018-06-09] MEDS ORDERED: Dexamethasone 10 MG in Sodium Chloride 0.9% 50 ML IVPB SCH (18:45)
[2018-06-09] MEDS ORDERED: Famotidine/PF 20 mg/2ml Vial SLOW IVP SCH (18:45)
[2018-06-09 19:40] LABS: PT - Undiluted 13.8 SEC (12.0-14.7); PTT - Undiluted 27.9 SEC (22.9-36.1)
[2018-06-09 20:04] LABS: Band 16 % (5-11); Hemoglobin 12.1 g/dL (12.0-16.0); Lymphocytes 10 % (21-51); MDiff Complete? YES; Mean Corpuscular HGB CONC 33.2 g/dL (32.0-36.0); Mean Corpuscular Hemoglobin 29.4 pg (27.0-31.0); Mean Corpuscular Volume 88.5 fL (78.0-98.0); Mean Platelet Volume 6.6 fL (7.4-10.4); Metamyelocyte 1 % (0-0); Monocytes 1 % (0-10); Neutrophil 72 % (42-75); PLT Morphology Comment Appears Decreased; Platelet Count 79 thou/uL (130-400); RBC Distribution Width 14.3 % (11.5-14.5); Red Blood Cell (RBC) Count 4.13 mill/uL (4.20-5.40); White Blood Cell (WBC) Count 17.2 thou/uL (4.8-10.8)
--- NOTE | 2018-06-09 20:31 | HP ---
REASON FOR ADMISSION: Inpatient chemotherapy for recurrent diffuse large B cell lymphoma. HISTORY OF PRESENT ILLNESS: The patient is a 62-year-old woman with a history of diffuse large B-cell lymphoma diagnosed in August 2017. The patient presented with pancytopenia, diffuse adenopathy, splenomegaly, and a positive marrow for diffuse large B-cell lymphoma. IPI score was 4, and there was, in retrospect, evidence for double-hit lymphoma by FISH. The patient underwent 6 cycles of CHOP Rituxan, completed in December of this year and PET scan was negative post treatment indicating a CR. A long discussion was had with the patient at the outset as well as after therapy regarding intrathecal prophylaxis and decision was made to observe. Approximately, one month ago, she began developing dyspnea on exertion and some shortness of breath. She was admitted to the hospital in late May and a number of studies were performed. In summary, the patient was found to have recurrent diffuse large B-cell lymphoma with molecular evidence of double-hit involving lung, pleura, and abdominal nodes. A lumbar puncture was also performed and results today returned with flow positivity for large cell lymphoma. I discussed various options with the patient and also consulted with Dr. Beckman at [facility]. She is admitted now for inpatient chemotherapy consisting of R-ICE. ALLERGIES: NONE. MEDICATIONS: 1. Tylenol with Codeine. 2. Clonidine. 3. Livalo 5. Multivitamins. MEDICAL ILLNESS: The patient has a history of hyperlipidemia and intermittent hypertension. PAST SURGICAL HISTORY: Tubal ligation in the past. FAMILY HISTORY: No history of blood disorder or lymphoma. A sister had lung cancer. SOCIAL HISTORY: The patient is and has 7 children. She lives with her spouse. Until the diagnosis of lymphoma was made, she was an everyday smoker. She has approximately 40-pack year history of smoking. She has no occupational exposure. She drinks rarely. She works as an payroll accounting specialist. REVIEW OF SYSTEMS: She has dyspnea on exertion and her appetite is marginal. Otherwise, she denies significant cardiopulmonary, GI, , musculoskeletal, or neurological complaints. PHYSICAL EXAMINATION: VITAL SIGNS: Temperature 97.8, pulse 88, respirations 16, and blood pressure 99 /57. GENERAL: The patient is a well-developed and well-nourished woman, in no acute distress. She is alert, oriented, and cooperative. HEENT: Extraocular movements are intact. Pupils are equal, round, and reactive to light. NECK: Supple. LUNGS: Decreased BS on the left CARDIOVASCULAR: Regular rate and rhythm without murmur, rub, gallop, or click. ABDOMEN: No tenderness, organomegaly, masses, bruise or ascites. EXTREMITIES: No clubbing, cyanosis, or edema. SKIN: Normal. LYMPH: No adenopathy. MUSCULOSKELETAL: No active arthritis. NEUROLOGIC: No focal findings. Cranial nerves 2 through 12 are grossly intact. LABORATORY DATA: White blood cell count is 43.0, hemoglobin 13.0, and platelets count 233,000. There are circulating abnormal lymphocytes, worrisome for lymphoma. Chemistries are significant for normal renal function, slightly low phosphorus, and a uric acid of 13. IMPRESSION: 1. 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 2. Positive CSF for lymphoma by flow. RECOMMENDATIONS: I discussed the findings above at length with the patient and her . I also discussed the case with [facility], Dr. Beckman. The patient will be admitted for R-ICE chemotherapy. She will be prepared with fluids, alkalinization, and will receive rasburicase as needed for hyperuricemia as she is at high-risk for tumor lysis. Neurosurgery will be consulted for placement of an Ommaya reservoir and subsequent intrathecal chemotherapy. I did discuss the worrisome prognosis in this setting. I discussed subsequent transfer to [facility] for either stem-cell transplant should induction therapy be successful or other investigational options. Other concerns are that the treatment of the CSF involvement is controversial and may include intrathecal chemotherapy as well as high-dose methotrexate at some point. However, high- dose methotrexate is not available at our institution. Nonetheless, immediate transfer to a [facility] is really not practical as the rapidity disease progression will require immediate institution of therapy. Prognosis worrisome. Job ID: [id number] MTDD
--- NOTE | 2018-06-10 04:24 | CON ---
DATE OF CONSULTATION: 06/09/2018 SURGICAL CONSULT NOTE HISTORY OF PRESENT ILLNESS: Ms. Wallace was brought into the hospital today to start chemotherapy for lymphoma. This is a recurrence of her B-cell lymphoma. Dr. Boggs, the admitting physician has asked Neurosurgery to consult for the possibility of Ommaya reservoir placement. The patient is starting chemotherapy today and she is getting an MRI today to see if it is possible for the placement of this Ommaya reservoir. The patient has been progressively getting worse in the last month or so and she did not tell anybody until her visit to the ER in late May. She finished treatment this summer for her first round. When I visit the patient in her hospital room, she is lying in her bed. She appears to be uncomfortable and does not want to talk to me. She is moving her all 4 extremities well. She does not complain of any pain. She states that she just needs to use the restroom. REVIEW OF SYSTEMS: A 10-point review of systems has been completed and is negative as stated above in the HPI. PAST MEDICAL HISTORY: Remarkable for, 1. B-cell lymphoma. 2. Lipid disorder. 3. Hypertension. 4. Anemia associated with chemotherapy and hepatitis. SOCIAL HISTORY: She is a half a pack of smoker a day. FAMILY HISTORY: Positive for vascular disease and arthritis. PHYSICAL EXAMINATION: GENERAL: The patient appears to be uncomfortable, but nontoxic, normotensive, and slightly tachycardic. VITAL SIGNS: Heart rate 111, respirations 26, O2 saturation is 92% on 2L nasal cannula, blood pressure 129/64. HEENT: Head is normocephalic, atraumatic. Pupils are equal, round, and reactive to light. Extraocular movements are intact. Hearing is intact. Moist mucous membranes. RESPIRATIONS: Normal work of breathing on room air. Regular symmetrical chest rise. HEART: Regular rate and rhythm. Normal S1 and S2. EXTREMITIES: The patient is moving all 4 extremities well. She does not have any swelling or discomfort. NEUROLOGIC: The patient is alert and oriented x3. Cranial nerves 2 through 12 are intact. There are no focal motor or sensory deficits noted. IMAGING: MRI of the brain performed. Impression; 1. Chronic small vessel ischemic changes of white matter. 2. Absent restricted diffusion, no acute infarct. 3. No pathologic enhancement of the brain parenchyma. ASSESSMENT AND PLAN: The patient has B-cell lymphoma that has cerebrospinal fluid involvement. Neurosurgery has been consulted for the possible placement of Ommaya reservoir. When I spoke with the patient today, she states that she is not interested, however, we will need to have further discussion with the patient and her physician to decide whether we will move forward with this procedure or not. Job ID: [id number]
[2018-06-10] MEDS ORDERED: Dexamethasone 10 MG in Sodium Chloride 0.9% 50 ML IVPB SCH (06:00)
[2018-06-10] MEDS ORDERED: Palonosetron HCl 0.25 MG in Sodium Chloride 0.9% 50 ML IVPB SCH (06:00)
[2018-06-10 06:22] LABS: ALT (SGPT) 36 U/L (8-55); AST (SGOT) 100 U/L (5-34); Albumin 2.7 g/dL (3.4-4.8); Alkaline Phosphatase 215 U/L (40-150); Anion Gap 16 mmol/L (10-20); BUN (Urea Nitrogen) 13 mg/dL (9.8-20.1); Bilirubin, Total 1.2 mg/dL (0.2-1.2); Calc. Creatinine Clearance 93 mL/min (70-130); Calcium 8.5 mg/dL (7.8-10.44); Carbon Dioxide 26 mmol/L (23-31); Chloride 99 mmol/L (98-107); Estimated GFR-MDRD 83; Glucose 126 mg/dL (80-115); Phosphorus 4.1 mg/dL (2.3-4.7); Potassium 3.9 mmol/L (3.5-5.1); Protein, Total 4.7 g/dL (6.0-8.3); Sodium 137 mmol/L (136-145); Uric Acid 6.8 mg/dL (2.6-6.0)
[2018-06-10] MEDS ORDERED: CARBOPLATIN IVPB SCH (08:00)
[2018-06-10] MEDS ORDERED: SODIUM CHLORIDE 0.9% IVPB SCH (08:00)
--- NOTE | 2018-06-10 08:32 | PRG ---
DATE OF SERVICE: 06/10/2018 NEUROSURGERY PROGRESS NOTE I personally interviewed and examined the patient, reviewed the records and imaging and agreed with documentation of Kandice Caruso PA-C, dated 06/09/2018. Briefly, Kika Wallace is a 62-year-old woman, referred to us by phone by Dr. Howard Boggs of Oncology. She has a history of large B-cell lymphoma, and a recent lumbar puncture showed malignant cells. We have been consulted to speak with the patient about placement of an Ommaya reservoir. MR imaging of the brain has been performed. Overnight, the vitals remained stable. This morning, the cranial nerves are working well. The patient is awake and alert. She is answering questions appropriately. No finding of lateralized motor or sensory deficits. MR imaging does not show pachy or leptomeningeal enhancement. There are no focal masses. Ventricular system looks adequate for placement of an Ommaya reservoir. I had a long discussion with Ms. Wallace about placement of an Ommaya reservoir. Yesterday, she refused placement. This morning, she wants to consider it and would like to have it done today. We made her n.p.o. over midnight. Platelet count is 79,000, it will be better if it were 100,000, but it is not out of the realm of possibility to do the surgery currently. She has to know there is increased risk of bleeding, which could become life-threatening. Informed Consent: I discussed indications, risks, benefits, and alternatives to Ommaya placement. The risks we discussed included, but were not limited to, bleeding, infection, stroke, brain damage, seizures, paralysis, dependence for care, cardiopulmonary complications of anesthesia, and . She understands the risks. She wants to proceed. We will make arrangements for this to happen later this morning. I will speak with her and her family once again about the platelet issue before bringing her back. Job ID: [id number]
[2018-06-10] MEDS ORDERED: CEFAZOLIN 2 GM/50 ML BAG ONE (10:24)
[2018-06-10] MEDS ORDERED: Thrombin 5000 UNITS/5 ML VIAL ONE (11:53)
[2018-06-10] MEDS ORDERED: Lidocaine 0.5%/Epinephrine 1:200,000 50 ml Vial ONE (11:53)
[2018-06-10] MEDS ORDERED: Bacitracin Zinc Ointment 30 gm TUBE ONE (11:53)
[2018-06-10] MEDS ORDERED: Sodium Chloride 0.9% 10 ML ONE ×2 (11:53→13:04)
[2018-06-10] MEDS ORDERED: Fentanyl 100 MCG/2 ML VIAL ONE ×2 (12:07→15:14)
[2018-06-10] MEDS ORDERED: Ondansetron PF 4 MG/2 ML Vial ONE (13:13)
[2018-06-10] MEDS ORDERED: PROPOFOL 200 MG/20 ML VIAL ONE (13:13)
[2018-06-10] MEDS ORDERED: Glycopyrrolate 0.2 MG/ML 5 ML SYRINGE ONE (13:13)
[2018-06-10] MEDS ORDERED: Lidocaine 1% PF 5 ML VIAL ONE (13:13)
[2018-06-10] MEDS ORDERED: PROVENTIL INHALER 6.7 G (200 INHALATIONS) ONE (13:13)
[2018-06-10] MEDS ORDERED: PHENYLEPHRINE-NS 100 MCG/ML 10 ML SYRINGE ONE ×3 (13:13→14:19)
[2018-06-10] MEDS ORDERED: HYDROmorphone 2 MG/ML VIAL SLOW IVP PRN (13:42)
[2018-06-10] MEDS ORDERED: Morphine Sulfate 2 MG/ML SYRINGE SLOW IVP PRN (13:42)
[2018-06-10] MEDS ORDERED: Promethazine HCl 25 MG/ML VIAL SLOW IVP PRN (13:42)
[2018-06-10] MEDS ORDERED: Ondansetron HCl/PF 4 MG/2 ML Vial IVP PRN (13:42)
[2018-06-10] MEDS ORDERED: Meperidine HCl/PF 25 MG/ML VIAL SLOW IVP PRN (13:42)
[2018-06-10] MEDS ORDERED: PACU-Morphine 4MG/ML VIAL SLOW IVP PRN (13:42)
[2018-06-10] MEDS ORDERED: Promethazine HCl 25 MG/ML VIAL IM PRN (13:42)
[2018-06-10] MEDS ORDERED: SUGAMMADEX SODIUM 500 MG/5 ML VIAL ONE (13:52)
[2018-06-10] MEDS ORDERED: SUGAMMADEX SODIUM 200 MG/2 ML VIAL ONE (13:52)
[2018-06-10] MEDS ORDERED: Midazolam HCl 2 mg/2 ml Vial ONE (14:08)
[2018-06-10] MEDS ORDERED: Vecuronium 10 MG VIAL ONE (14:50)
[2018-06-10 14:53] LABS: Actual Bicarbonate (HCO3a) 25.9 mEq/L (22-28); Base Excess (BEa) 0.1 mEq/L (-2.0 to +3.0); CO2 Tension 47.1 mmHg (35.0-45.0); Calcium, Ionized 1.02 mmol/L (1.12-1.30); Carboxyhemoglobin (COHb) 1.1 gm% (0.0-3.0); Hemoglobin (Hb) 10.1 g/dL (12.0-16.0); O2 Tension (PaO2) 131.4 mmHg (> 80.0); Potassium - ABG Lab 3.81 mmol/L (3.70-5.30); pH, Arterial 7.36 (7.35-7.45)
[2018-06-10 14:54] LABS: ALV-art Gradient 415.775 (0-20); Puncture Site LRA
[2018-06-10] MEDS ORDERED: Morphine 2 MG/ML SYRINGE SLOW IVP PRN (16:05)
[2018-06-10] MEDS ORDERED: fentaNYL Citrate/PF 2,000 MCG in Sodium Chloride 0.9% 60 ML IV SCH (16:05)
[2018-06-10] MEDS ORDERED: Fentanyl BOLUS 250 ML IVPB PRN (16:05)
[2018-06-10] MEDS ORDERED: DISCONTINUE PREVIOUS NARCOTIC PAIN MEDICATIONS AND BENZODIAZEPINES FS SCH (16:05)
[2018-06-10] MEDS ORDERED: Lorazepam 2 MG/ML VIAL SLOW IVP PRN (16:05)
[2018-06-10] MEDS ORDERED: Propofol BOLUS 1,000 MG/100 ML VIAL IV PRN (16:05)
--- NOTE | 2018-06-10 16:12 | RAD ---
FRONTAL VIEW CHEST: 06/10/18 COMPARISON: 05/31/18 CLINICAL HISTORY: Postop ventilated patient. History of pleural fluid. FINDINGS: There is an endotracheal tube with at the thoracic inlet. Right sided chest port remains. There is pl eural based density at the inferior left chest with adjacent hazy opacity. Paramediastinal opacificat ion of the lungs is present bilaterally as well as hilar vascular prominence. There is no discrete pn eumothorax. IMPRESSION: 1. Pleural fluid at the inferior left chest with adjacent atelectasis and/or pneumonia. 2. Findings most consistent with fluid overload/edema with prominent bilateral paramediastinal a nd perihilar opacities as well as a persistently enlarged cardiomediastinal silhouette. Recommend con tinued followup. POS: [facility]
[2018-06-10 16:53] LABS: Base Excess (BEa) 2.2 mEq/L (-2.0 to +3.0); CO2 Tension 42.8 mmHg (35.0-45.0); Calcium, Ionized 1.03 mmol/L (1.12-1.30); Carboxyhemoglobin (COHb) 0.9 gm% (0.0-3.0); Hemoglobin (Hb) 10.5 g/dL (12.0-16.0); O2 Tension (PaO2) 100.3 mmHg (> 80.0); Potassium - ABG Lab 3.65 mmol/L (3.70-5.30); pH, Arterial 7.42 (7.35-7.45)
[2018-06-10] MEDS ORDERED: SYSTANE 3.5 GM TUBE EA EYE PRN (17:28)
[2018-06-10] MEDS ORDERED: Sodium Chloride 0.9% 1,000 ML IV SCH (18:00)
[2018-06-10] MEDS: CEFAZOLIN 2 GM/50 ML BAG IVPB SCH ×3 (18:13→23:56)
[2018-06-10 18:26] LABS: Puncture Site RRA
[2018-06-10] MEDS: Propofol 1,000 MG/100 ML VIAL IV PRN (19:02)
--- NOTE | 2018-06-10 19:54 | OP ---
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 PREOPERATIVE DIAGNOSES: Diffuse large B-cell lymphoma, positive cytology and CSF. POSTOPERATIVE DIAGNOSES: Diffuse large B-cell lymphoma, positive cytology and CSF. OPERATIVE PROCEDURE: BrainLAB stereotactic assisted placement of ventricular catheter and fluid reservoir for CSF chemotherapy. PREOPERATIVE MEDICATIONS: Ancef 2 g IV. DRAINS: Zero. DRAINS TYPE: None. DESCRIPTION OF PROCEDURE: The patient was brought to the operating room, where general endotracheal anesthesia was induced. The patient's head was immobilized with [place] santiago headholder. Using the preop BrainLAB protocol, MR scan and the BrainLAB system, we generated three-dimensional navigational space around the patient's head by using surface registration technique. We verified the registration with landmarks and found it to be accurate. Hair was removed from the right side of scalp with electric clippers. We planned a curvilinear incision in a half [place] around our planned addi hole site. Under planned incision, we infused local anesthetic. The right side of the scalp was sterilely prepped and draped. We opened with a 10 blade knife and controlled bleeding with bipolar cautery. We placed a self-retaining retractor, holding the flap backwards. We placed a addi hole at the center of her cranial incision and waxed the bone edges. We coagulated the surface of the dura and opened in a cruciate fashion. We gently coagulated the debbie and incised it. Using our navigation wand in the BrainLAB system, we planned a trajectory into the frontal horn of the lateral ventricle. The depth was about 5 cm. We advanced the ventricular catheter using that trajectory into the ventricular system and got brisk CSF outflow. We cut the catheter and attached it to a chemotherapy reservoir. We reinforced the detachment with 0-silk suture. We tacked down the fluid reservoir to the periosteum around the addi hole. We closed the flap in anatomical layers. We applied a sterile dressing. The patient was taken out of [place] santiago headholder. This was a clean case. No contamination. Job ID: [id number]
--- NOTE | 2018-06-10 23:25 | CON ---
DATE OF CONSULTATION: 06/10/2018 SERVICE: Pulmonary Medicine. REASON FOR CONSULTATION: Respiratory failure. HISTORY OF PRESENT ILLNESS: The patient is a 62-year-old white female with past medical history significant for lymphoma. Ultimately, she had recurrence of the disease based on a recent thoracentesis. She ended up getting a PleurX catheter placed. She came in from the outpatient setting and was in the hospital. She was getting her chemotherapy and IV fluid infusions. An LP was also identified involvement of the cerebral spinal fluid. Ultimately, she went down today for placement of an Ommaya. Following the procedure, she was extubated but subsequently required repeat intubation and so she was tucked into the ICU. She currently denies any chest pain, fevers, or chills. She is moving all 4 extremities spontaneously and following some simple commands. She is on minimal ventilator settings at this point. There were no other reported issues. There was no reported history of fevers or chills that she presented to the hospital with. Other than the lymphoma, and initiation of chemotherapy, she was in her usual state of health. PAST MEDICAL HISTORY: 1. Dyslipidemia. 2. Hypertension. 3. Diffuse large B-cell lymphoma, status post 6 cycles of R-CHOP completed in December with subsequent recurrence, and starting RICE therapy, status post round 1. PAST SURGICAL HISTORY: 1. Tubal ligation. 2. Ommaya placement. FAMILY HISTORY: Noncontributory. SOCIAL HISTORY: She is and has 7 children. She lives with her spouse. She has a greater than [id number] history of smoking, but is currently a nonsmoker for over 5 months. She has no exposure to chemicals, dust, asbestos, or tuberculosis. She is an accounts payable associate. ALLERGIES: 1. TRAMADOL. 2. TIZANIDINE. MEDICATIONS: List of her inpatient medications was reviewed and multiple updates were made. REVIEW OF SYSTEMS: This could not be obtained as the patient is currently intubated and under the influence of anesthesia. PHYSICAL EXAMINATION: VITAL SIGNS: Afebrile currently, pulse 98, blood pressure 82/53, respirations 21, saturation 97% on 37% FiO2 and a PEEP of 7. HEENT: Normocephalic and atraumatic. Sclerae white. Conjunctivae pink. Oral mucosa is moist without lesions. LUNGS: Decent air entry. There is no prolonged expiratory phase. Crackles are present dependently. They are more predominantly displayed on the left compared to the right. HEART: Normal rate. Regular. ABDOMEN: Soft, nontender, and nondistended. Bowel sounds are positive. MUSCULOSKELETAL: No cyanosis or clubbing. She has had diffuse 2+ edema from the hips all the way down to the lower extremities. The upper extremities demonstrate a little bit of skin tenting, which is quite mild. : Butterfield catheter in place. NEUROLOGIC: Grossly nonfocal. She is specifically moving all 4 extremities and is nodding yes and no appropriately. She is breathing comfortably over the ventilator, and has brainstem reflexes that are intact. LABORATORY DATA: WBCs 17.2, hemoglobin 12.1, platelets 79,000. Neutrophil count is 72 with a band count of 16% on top of that. Basic metabolic profile is completely unremarkable. Uric acid is 6.8 and downtrending, AST 100, alkaline phosphatase 215. IMAGING DATA: Chest x-ray demonstrates thoracostomy drain is in the left chest. There is a hydropneumothorax on that side. There is a right-sided subclavian [id number]. There is no pleural fluid on the right. Endotracheal tube is in very good position, roughly 3 cm above the level of the luis alberto. Left basilar pleural-parenchymal opacification is present. ASSESSMENT: 1. Acute hypoxic respiratory failure. 2. Lymphoma, status post R-CHOP x6 with recurrence followed by RICE therapy. 3. Malignant pleural effusion. 4. Tumor lysis syndrome, mild. 5. Metabolic encephalopathy, improving. DISCUSSION AND PLAN: At this point, would like to give the patient some time to recover from her anesthesia. We will keep her comfortable tonight with very rapid-acting medications. In the morning, we will hold off sedation and prepare for spontaneous breathing trial. Clinically, she is a touch volume up. If she can tolerate a dose of Lasix in the morning, one will be provided. Pulmonary Critical Care will follow very closely in this location. Critical care time: 30 minutes. Job ID: [id number] [facility]
[2018-06-11] MEDS: Propofol 1,000 MG/100 ML VIAL IV PRN ×2 (02:07→05:24)
[2018-06-11 05:16] LABS: ALT (SGPT) 31 U/L (8-55); AST (SGOT) 73 U/L (5-34); Albumin 2.7 g/dL (3.4-4.8); Alkaline Phosphatase 206 U/L (40-150); Anion Gap 16 mmol/L (10-20); BUN (Urea Nitrogen) 16 mg/dL (9.8-20.1); Bilirubin, Total 0.7 mg/dL (0.2-1.2); Calc. Creatinine Clearance 93 mL/min (70-130); Calcium 8.1 mg/dL (7.8-10.44); Carbon Dioxide 26 mmol/L (23-31); Chloride 102 mmol/L (98-107); Estimated GFR-MDRD 83; Globulin 2.4 g/dL (2.4-3.5); Glucose 99 mg/dL (80-115); Phosphorus 4.4 mg/dL (2.3-4.7); Potassium 3.9 mmol/L (3.5-5.1); Protein, Total 5.1 g/dL (6.0-8.3); Sodium 140 mmol/L (136-145); Uric Acid 5.5 mg/dL (2.6-6.0)
[2018-06-11] MEDS: CEFAZOLIN 2 GM/50 ML BAG IVPB SCH ×3 (05:24→21:05)
[2018-06-11 05:50] LABS: Band 17 % (5-11); Eosinophils 2 % (0-10); Hemoglobin 9.3 g/dL (12.0-16.0); Lymphocytes 8 % (21-51); MDiff Complete? YES; Mean Corpuscular HGB CONC 33.7 g/dL (32.0-36.0); Mean Corpuscular Hemoglobin 30.2 pg (27.0-31.0); Mean Corpuscular Volume 89.5 fL (78.0-98.0); Mean Platelet Volume 8.4 fL (7.4-10.4); Metamyelocyte 2 % (0-0); Monocytes 2 % (0-10); Neutrophil 69 % (42-75); PLT Morphology Comment Appears Decreased; Platelet Count 51 thou/uL (130-400); RBC Distribution Width 14.3 % (11.5-14.5); Red Blood Cell (RBC) Count 3.07 mill/uL (4.20-5.40); White Blood Cell (WBC) Count 5.3 thou/uL (4.8-10.8)
[2018-06-11] MEDS ORDERED: Furosemide 20 MG/2 ML VIAL SLOW IVP SCH (06:00)
[2018-06-11] MEDS ORDERED: IFOSFAMIDE IVPB SCH (08:00)
[2018-06-11] MEDS ORDERED: DEXTROSE 5% IVPB SCH (08:00)
[2018-06-11] MEDS ORDERED: WATER IVPB SCH (08:00)
[2018-06-11] MEDS ORDERED: MESNA IVPB SCH (08:00)
[2018-06-11] MEDS ORDERED: Palonosetron HCl 0.25 MG in Sodium Chloride 0.9% 50 ML IVPB SCH (10:00)
[2018-06-11] MEDS ORDERED: SODIUM CHLORIDE 0.9% IVPB SCH (10:00)
[2018-06-11] MEDS ORDERED: CARBOPLATIN IVPB SCH (10:00)
[2018-06-11] MEDS ORDERED: Dexamethasone 10 MG in Sodium Chloride 0.9% 50 ML IVPB SCH (10:00)
--- NOTE | 2018-06-11 10:41 | PRG ---
DATE OF SERVICE: 06/11/2018 NEUROSURGERY PROGRESS NOTE I saw Ms. Wallace, who is in the ICU this morning. Anesthesia felt she was dyspneic in the recovery room and reintubated her. She has been intubated overnight and needed some propofol to tolerate the tube. Even on propofol this morning, she asked to take the tube out. She is afebrile, and her vital signs are stable. I asked her to nod and shake her head to questions, and she can do that quite appropriately. She is moving all her extremities very well. She is wide awake. She asked to take the tube out multiple times by pointing. I am slightly concerned about her platelet count falling to 51,000 following surgery. I am going to order one more unit of platelets to be administered slowly this morning. Ms. Wallace can return to the care of the Oncology Team. We will follow up in clinic. Job ID: [id number]
--- NOTE | 2018-06-11 11:17 | PRG ---
DATE OF SERVICE: 06/11/2018 SERVICE: Pulmonary Medicine. INTERVAL HISTORY: The patient is doing really well from respiratory standpoint. She is actually wide awake. I put on a spontaneous breathing trial, she is doing very well. She is on 30 mcg of propofol. Under no circumstances, she is really sedated. She demonstrates excellent strength today. Otherwise, there has been no interval change to her condition. PHYSICAL EXAMINATION: VITAL SIGNS: Afebrile, pulse 73, blood pressure 182/79, respirations 19, saturation 99% on 39% FiO2 and PEEP of 5. GENERAL: The patient is awake and alert, in no apparent distress. LUNGS: Excellent air entry. There is a little bit of crackling present in the bibasilar regions. HEART: Normal rate, regular. ABDOMEN: Soft, nontender, and nondistended. Bowel sounds are positive. MUSCULOSKELETAL: No cyanosis or clubbing. There is no pitting in the bilateral lower extremities. NEUROLOGIC: Grossly nonfocal. LABORATORY DATA: WBC 5.3, hemoglobin 9.3, platelets 51,000 and dropping. Band count 17% on top of 69% neutrophils. Sodium 140. Basic metabolic profile is otherwise unremarkable. Alk phos 205 and dropping. Uric acid level is falling to 5.5, TSH 1.5. ASSESSMENT: 1. Acute hypoxic respiratory failure. 2. Lymphoma, status post R-CHOP x6 with recurrence followed by R-ICE x1. 3. Metabolic encephalopathy, clearly resolved. 4. Hydropneumothorax on the left with PleurX catheter in good position. DISCUSSION AND PLAN: We will put her on a spontaneous breathing trial. I will drop her propofol down to 10. If she meets criteria, extubation will be considered. Once she is off the propofol, we will give her a dose of Lasix to see if we can pull some more volume. Pulmonary Critical Care will continue to follow along while she remains in the ICU. If she is stable into the afternoon, we can consider transitioning her back to the floor, but with additional rounds of chemotherapy and the IV fluid that accompanies it, we may need to intermittently dose some Lasix for her. Critical care time: 30 minutes. Job ID: [id number] MTDD
[2018-06-11] MEDS: Furosemide 40 MG/4 ML VIAL SLOW IVP SCH (13:08)
[2018-06-11] MEDS ORDERED: Furosemide 40 MG/4 ML VIAL ONE (16:18)
[2018-06-11] MEDS ORDERED: Labetalol HCl 100 MG/20 ML VIAL ONE (16:18)
[2018-06-11] MEDS ORDERED: Labetalol HCl 100 MG/20 ML VIAL SLOW IVP PRN (16:25)
--- NOTE | 2018-06-11 16:53 | RAD ---
PORTABLE AP CHEST X-RAY 06/11/18 HISTORY: Followup evaluation. COMPARISON: 06/10/18. FINDINGS: The endotracheal tube has been removed. A right subclavian Mediport catheter is stable in position. A left pleural catheter is again seen in place. Again noted are pleural and parenchymal changes at th e left lung base likely related to moderate sized left pleural effusion and atelectasis, although ponce perimposed pneumonia at the left lung base is a possibility. Increased density is again seen in a lef t paramediastinal location similar to the prior exam. There are increased interstitial and alveolar o pacities seen throughout the right lung which have increased in the right mid lung zone at the right lung base. The findings are more worrisome for an infectious process as opposed to asymmetric pulmon cali edema. No other interval change. IMPRESSION: 1. Increased interstitial and alveolar opacities throughout the right lung which have increased from prior study and are worrisome for infectious process and thought to less likely represent asymme tric pulmonary edema. 2. Moderate sized left pleural effusion and probable atelectasis at the left lung base; although , superimposed pneumonia at the left lung base is a possibility. 3. Increased density in a left paramediastinal location which does appear slightly improved from the prior exam. POS: GRETTA
[2018-06-12 06:08] LABS: ALT (SGPT) 37 U/L (8-55); AST (SGOT) 89 U/L (5-34); Albumin 2.9 g/dL (3.4-4.8); Alkaline Phosphatase 275 U/L (40-150); Anion Gap 15 mmol/L (10-20); BUN (Urea Nitrogen) 27 mg/dL (9.8-20.1); Bilirubin, Total 0.8 mg/dL (0.2-1.2); Calc. Creatinine Clearance 108 mL/min (70-130); Calcium 7.9 mg/dL (7.8-10.44); Carbon Dioxide 27 mmol/L (23-31); Chloride 101 mmol/L (98-107); Estimated GFR-MDRD Greater than 90; Globulin 2.6 g/dL (2.4-3.5); Glucose 188 mg/dL (80-115); Phosphorus 4.5 mg/dL (2.3-4.7); Potassium 4.1 mmol/L (3.5-5.1); Protein, Total 5.5 g/dL (6.0-8.3); Sodium 139 mmol/L (136-145); Uric Acid 11.1 mg/dL (2.6-6.0)
[2018-06-12] MEDS: CEFAZOLIN 2 GM/50 ML BAG IVPB SCH ×3 (06:10→21:04)
[2018-06-12] MEDS: Furosemide 40 MG/4 ML VIAL SLOW IVP SCH ×2 (06:10→14:42)
[2018-06-12 06:51] LABS: Band 24 % (5-11); Hemoglobin 9.6 g/dL (12.0-16.0); Lymphocytes 2 % (21-51); MDiff Complete? YES; Mean Corpuscular HGB CONC 33.1 g/dL (32.0-36.0); Mean Corpuscular Hemoglobin 29.5 pg (27.0-31.0); Mean Platelet Volume 8.7 fL (7.4-10.4); Monocytes 1 % (0-10); Neutrophil 73 % (42-75); PLT Morphology Comment Appears Decreased; Platelet Count 92 thou/uL (130-400); RBC Distribution Width 14.3 % (11.5-14.5); Red Blood Cell (RBC) Count 3.25 mill/uL (4.20-5.40); White Blood Cell (WBC) Count 9.2 thou/uL (4.8-10.8)
[2018-06-12] MEDS ORDERED: DEXTROSE 5% IVPB SCH ×2 (08:00→10:00)
[2018-06-12] MEDS ORDERED: WATER IVPB SCH ×2 (08:00→10:00)
[2018-06-12] MEDS ORDERED: MESNA IVPB SCH ×2 (08:00→10:00)
[2018-06-12] MEDS ORDERED: IFOSFAMIDE IVPB SCH (10:00)
[2018-06-12] MEDS ORDERED: Allopurinol 100 MG TAB PO SCH (10:30)
--- NOTE | 2018-06-12 10:54 | PRG ---
DATE OF SERVICE: 06/12/2018 SERVICE: Pulmonary Medicine. INTERVAL HISTORY: The patient is doing fairly well from respiratory standpoint. She remained on BiPAP overnight. This morning, she got a break and ate. Her sats were in the mid 80s on 4 L nasal cannula. She indicates she is having some little bit of work of breathing and increased shortness of breath. She is having a little cough and not generating any sputum. She denies any current fevers or chills. There are no significant overnight events otherwise. OBJECTIVE: VITAL SIGNS: Afebrile. Pulse 88, blood pressure 141/101, respirations 23, oxygen saturation 93% on 45% FiO2 delivered via BiPAP with a PEEP of 5. HEENT: Normocephalic and atraumatic. Sclerae white. Conjunctivae pink. Oral mucosa is moist without lesions. LUNGS: Bilateral crackles are present. No prolonged expiratory phase or wheezing appreciated. There is decreased air entry on the left. HEART: Normal rate and regular. ABDOMEN: Soft, nontender, and nondistended. Bowel sounds are positive. MUSCULOSKELETAL: No cyanosis or clubbing. There is 1+ pitting in the bilateral lower extremities. NEUROLOGIC: Grossly nonfocal. LABORATORY DATA: WBC 9.2, hemoglobin 9.6, platelets 92. Her band count is increasing to 24% on top with 73% neutrophils. Basic metabolic profile is completely unremarkable with a creatinine that is down trending. Bicarb is stable. Liver function studies include an increase in alkaline phosphatase. IMAGING: Chest x-ray demonstrates increasing interstitial and alveolar opacifications throughout the right lung. There is an increasing pleural effusion on the left. The previously noted hydropneumothorax has essentially resolved. ASSESSMENT: 1. Acute hypoxic respiratory failure. 2. Lymphoma, status post R-CHOP x6 with recurrence followed by R-ICE x1. 3. Metabolic encephalopathy, resolved. 4. Pleural effusion on the left secondary to malignancy with PleurX catheter in good position. 5. Tumor lysis syndrome. DISCUSSION AND PLAN: We will drain her PleurX catheter today to see how much fluid we can get off. We will continue to diurese her. She remains in touch volume overloaded. If she has increasing signs of inflammatory response, panculture, and empiric antibiotics directed at lung issues may be considered, but for the time being, I do not want to give her the volume. She will remain in the ICU until she can tolerate no BiPAP. Job ID: [id number] MTDD
[2018-06-12] MEDS ORDERED: Rasburicase 3 MG in Sodium Chloride 0.9% 50 ML IVPB SCH (11:45)
[2018-06-12] MEDS: Acetaminophen/Codeine 30-300mg Tablet PO PRN (14:44)
[2018-06-12] MEDS ORDERED: Pegfilgrastim Onpro 6 MG/0.6 ML SQ SCH (16:00)
[2018-06-13] MEDS: Furosemide 40 MG/4 ML VIAL SLOW IVP SCH (05:04)
[2018-06-13] MEDS: CEFAZOLIN 2 GM/50 ML BAG IVPB SCH ×3 (05:04→21:46)
[2018-06-13 05:08] LABS: #Lymphocytes 0.2 thou/uL (1.20-3.40); #Monocytes 0.1 thou/uL (0.11-0.59); #Neutrophils 5.2 thou/uL (1.40-6.50); %Eosinophils 0.1 % (0.0-10.0); %Lymphocytes 4.3 % (21.0-51.0); %Monocytes 0.9 % (0.0-10.0); %Neutrophils 94.7 % (42.0-75.0); Hemoglobin 8.8 g/dL (12.0-16.0); Mean Corpuscular HGB CONC 32.4 g/dL (32.0-36.0); Mean Corpuscular Volume 89.5 fL (78.0-98.0); Mean Platelet Volume 8.9 fL (7.4-10.4); Platelet Count 76 thou/uL (130-400); RBC Distribution Width 14.1 % (11.5-14.5); Red Blood Cell (RBC) Count 3.04 mill/uL (4.20-5.40); White Blood Cell (WBC) Count 5.5 thou/uL (4.8-10.8)
[2018-06-13 05:31] LABS: ALT (SGPT) 25 U/L (8-55); AST (SGOT) 49 U/L (5-34); Albumin 2.6 g/dL (3.4-4.8); Alkaline Phosphatase 214 U/L (40-150); Anion Gap 11 mmol/L (10-20); BUN (Urea Nitrogen) 24 mg/dL (9.8-20.1); Bilirubin, Total 0.6 mg/dL (0.2-1.2); Calc. Creatinine Clearance 105 mL/min (70-130); Calcium 7.7 mg/dL (7.8-10.44); Carbon Dioxide 32 mmol/L (23-31); Chloride 100 mmol/L (98-107); Estimated GFR-MDRD 90; Globulin 2.3 g/dL (2.4-3.5); Glucose 136 mg/dL (80-115); Phosphorus 3.8 mg/dL (2.3-4.7); Potassium 3.6 mmol/L (3.5-5.1); Protein, Total 4.9 g/dL (6.0-8.3); Sodium 139 mmol/L (136-145); Uric Acid 5.3 mg/dL (2.6-6.0)
[2018-06-13] MEDS ORDERED: ETOPOSIDE IV SCH (08:00)
[2018-06-13] MEDS ORDERED: SODIUM CHLORIDE 0.9% IV SCH (08:00)
[2018-06-13] MEDS ORDERED: Allopurinol 100 MG TAB PO SCH (09:00)
[2018-06-13] MEDS ORDERED: MESNA IVPB SCH (10:00)
[2018-06-13] MEDS ORDERED: WATER IVPB SCH (10:00)
[2018-06-13] MEDS ORDERED: Pegfilgrastim Onpro 6 MG/0.6 ML SQ SCH (10:00)
[2018-06-13] MEDS ORDERED: DEXTROSE 5% IVPB SCH (10:00)
[2018-06-13] MEDS ORDERED: diphenhydrAMINE 50 MG/ML VIAL IVP SCH ×2 (12:45→14:30)
--- NOTE | 2018-06-13 13:25 | PRG ---
DATE OF SERVICE: 06/13/2018 SERVICE: Pulmonary Medicine. INTERVAL HISTORY: The patient is doing really well from respiratory standpoint. She is on 4 L of nasal cannula. She is breathing comfortably. She does not look to be in any distress. That being said, she is quite somnolent. There has been no interval change to her condition. Nursing reports no overnight events today. OBJECTIVE: VITAL SIGNS: Afebrile, pulse 76, blood pressure 96/56, respirations 18, saturation 99% on 4 L nasal cannula. GENERAL: The patient is awake, alert, in no apparent distress. LUNGS: Decent air entry. Dependent crackles remain. No prolonged expiratory phase or wheezing was appreciated. HEART: Normal rate, regular. ABDOMEN: Soft, nontender, and nondistended. Bowel sounds are positive. MUSCULOSKELETAL: No cyanosis or clubbing. There is 1 to 2+ pitting throughout. GENITOURINARY: Butterfield catheter in place. NEUROLOGIC: Grossly nonfocal. LABORATORY DATA: WBC 5.5, hemoglobin 8.8, platelets 76,000. Basic metabolic profile is essentially unremarkable except for a bicarb that is trending up to 32, and a BUN of 24. Creatinine is stable. Her uric acid level has dropped to 5.3. Basic metabolic profile is otherwise unremarkable. Alkaline phosphatase and AST are both trending downward. ASSESSMENT: 1. Acute hypoxic respiratory failure, gently improving. 2. Lymphoma, status post R-CHOP x6 with recurrence followed by R-ICE x1. 3. Metabolic encephalopathy. 4. Malignant effusion on the left, status post PleurX catheter placement. 5. Tumor lysis syndrome, mild. DISCUSSION AND PLAN: The patient is breathing very comfortably. We will continue our supportive care. I would like for her to remain in the ICU for an additional 24 hours as she is quite weak and has high nursing requirements. We will continue to trend her laboratories. She is developing a touch of a contraction alkalosis. As such, I will suspend her Lasix for the time being, but we will need to keep a close eye on her volume status through time. Job ID: [id number]
[2018-06-13] MEDS: diphenhydrAMINE 50 MG/ML VIAL IVP PRN (17:46)
[2018-06-13] MEDS ORDERED: Acetaminophen 650 MG Suppository PR PRN (22:46)
[2018-06-14] MEDS: diphenhydrAMINE 50 MG/ML VIAL IVP PRN ×5 (00:22→21:43)
[2018-06-14] MEDS: Furosemide 40 MG/4 ML VIAL SLOW IVP SCH (06:24)
[2018-06-14] MEDS: CEFAZOLIN 2 GM/50 ML BAG IVPB SCH ×3 (06:24→21:43)
--- NOTE | 2018-06-14 09:42 | RAD ---
SINGLE VIEW OF THE CHEST: Comparison: 06-11-18 History: Chest pain FINDINGS: Single view of the chest shows a normal sized cardiomediastinal silhouette. There is a Mediport with its tip in the superior vena cava. There is a small to moderate left pleural effusion. There may be a tube within the left thorax. No significant change has occurred since the prior exam. IMPRESSION: Stable exam. POS: GRETTA
--- NOTE | 2018-06-14 20:56 | PRG ---
DATE OF SERVICE: 06/14/2018 SUBJECTIVE: Ms. Wallace's events have been noted. Her feels she is less encephalopathic today. She still has BiPAP in place. OBJECTIVE: VITAL SIGNS: Blood pressure is 167/94, heart rate is 94, respiratory rate 20, and oximetry is 99. LUNGS: Clear. HEART: Regular rhythm. ABDOMEN: Soft and nontender. EXTREMITIES: No clubbing, cyanosis, or edema. LABORATORY DATA: No lab today. IMPRESSION: 1. Encephalopathy associated with her chemotherapy? 2. Status post placement of a PleurX catheter. 3. Recurrent lymphoma recently diagnosed in her cerebrospinal fluid, bone marrow , and peripheral smear. PLAN: Continue supportive care in critical care unit. I met with the and answered all his questions. Dr. Boggs did as well. Critical care time is 35 minutes. Job ID: [id number] MTDD
[2018-06-15] MEDS: CEFAZOLIN 2 GM/50 ML BAG IVPB SCH ×3 (06:07→22:45)
[2018-06-15] MEDS: Furosemide 40 MG/4 ML VIAL SLOW IVP SCH (06:08)
[2018-06-15 07:44] LABS: Hemoglobin 10.5 g/dL (12.0-16.0); Mean Corpuscular HGB CONC 32.2 g/dL (32.0-36.0); Mean Corpuscular Hemoglobin 28.3 pg (27.0-31.0); Mean Corpuscular Volume 87.8 fL (78.0-98.0); Mean Platelet Volume 9.4 fL (7.4-10.4); Platelet Count 63 thou/uL (130-400); RBC Distribution Width 13.4 % (11.5-14.5)
--- NOTE | 2018-06-15 07:49 | RAD ---
PORTABLE SEMIUPRIGHT FRONTAL CHEST RADIOGRAPH: DATE: 06/15/2018. COMPARISON: 06/11/2018, 06/14/2018. HISTORY: Lymphoma. FINDINGS: There is a lateral stable left-sided chest tube. There is hazy increased density in the left lung ba se with blunting of the left costophrenic angle suggesting stable left pleural density, possibly on t he basis of left pleural fluid. There is a CT injectable right-sided Port-A-Cath, distal tip overlyi ng the region of the cavoatrial junction. Previously noted hazy opacity in the right lung has signif icantly improved when compared to 06/11/2018 exam. Interstitial and alveolar opacity noted on 018 examination bilaterally has significantly improved. IMPRESSION: Persistent pleural density in the left base with stable left chest tube. Marked interval improvement in aeration within both lungs when compared to prior study performed 06/14/2018. POS: JOHNNY
[2018-06-15 08:02] LABS: ALT (SGPT) 16 U/L (8-55); AST (SGOT) 29 U/L (5-34); Albumin 3.5 g/dL (3.4-4.8); Alkaline Phosphatase 202 U/L (40-150); Anion Gap 16 mmol/L (10-20); BUN (Urea Nitrogen) 26 mg/dL (9.8-20.1); Bilirubin, Total 0.9 mg/dL (0.2-1.2); Calc. Creatinine Clearance 74 mL/min (70-130); Calcium 9.6 mg/dL (7.8-10.44); Carbon Dioxide 21 mmol/L (23-31); Chloride 108 mmol/L (98-107); Estimated GFR-MDRD 85; Globulin 2.9 g/dL (2.4-3.5); Glucose 112 mg/dL (80-115); Potassium 3.7 mmol/L (3.5-5.1); Protein, Total 6.4 g/dL (6.0-8.3); Sodium 141 mmol/L (136-145)
[2018-06-15 08:07] LABS: Band 20 % (5-11); Lymphocytes 6 % (21-51); MDiff Complete? YES; Monocytes 1 % (0-10); Neutrophil 73 % (42-75); PLT Morphology Comment Appears Decreased; Polychromasia SLIGHT = 2-3 cells (100X) (0-2/hpf)
[2018-06-16] MEDS: diphenhydrAMINE 50 MG/ML VIAL IVP PRN (01:50)
[2018-06-16] MEDS: Furosemide 40 MG/4 ML VIAL SLOW IVP SCH (06:09)
[2018-06-16] MEDS: CEFAZOLIN 2 GM/50 ML BAG IVPB SCH ×3 (06:09→22:37)
[2018-06-16 06:25] VITALS: BMI 21.7
--- NOTE | 2018-06-16 12:28 | PRG ---
DATE OF SERVICE: 06/16/2018 SUBJECTIVE: Ms. Wallace is 180 degrees functionally compared to 2 days ago. She is sitting with a laptop in front of her paying bills. OBJECTIVE: VITAL SIGNS: She is afebrile, heart rate is 98, respiratory rate is 18, oximetry is 95% on 2 L, and blood pressure 105/64. LUNGS: Clear. HEART: Regular rhythm. ABDOMEN: Soft. IMPRESSION: Aggressive recurrent lymphoma, status post placement of an Ommaya reservoir and PleurX drainage catheter. PLAN: Per Oncology, she is clinically stable. She only needs to be drained if she is symptomatic. This was explained to the . I will see her again in the morning. Job ID: [id number]
[2018-06-16] MEDS: Ondansetron PF 4 MG/2 ML Vial SLOW IVP PRN (16:32)
[2018-06-17] MEDS: CEFAZOLIN 2 GM/50 ML BAG IVPB SCH (06:37)
[2018-06-17] MEDS: Furosemide 40 MG/4 ML VIAL SLOW IVP SCH (06:37)
[2018-06-17 08:59] VITALS: TEMP 98.2
[2018-06-17] MEDS ORDERED: METHOTREXATE SODIUM IT SCH (09:00)
[2018-06-17] MEDS ORDERED: SODIUM CHLORIDE 0.9% IT SCH (09:00)
[2018-06-17] MEDS: Ondansetron PF 4 MG/2 ML Vial SLOW IVP PRN (09:10)
[2018-06-17 14:29] VITALS: BP 105/58
--- NOTE | 2018-06-19 20:27 | DIS ---
DATE OF ADMISSION: 06/08/2018 DATE OF DISCHARGE: 06/17/2018 REASON FOR ADMISSION: Inpatient chemotherapy and placement of an Ommaya reservoir. HOSPITAL COURSE: The patient is a 62-year-old woman who was admitted for inpatient chemotherapy for large cell lymphoma consisting of Rituxan, Ifosfamide, mesna, carboplatin, and etoposide. Neurosurgery was consulted and an Ommaya reservoir was placed during the hospitalization by Dr. Ovalle. Postoperatively, she developed respiratory insufficiency secondary to not only the procedure, but known lymphomatous involvement of lung. She was placed in the intensive care unit and was subsequently extubated. She did require supplemental oxygen and occasional BiPAP. Chemotherapy was initiated and initially, it was tolerated well. As the infusional component of Ifosfamide was ending, she developed a metabolic encephalopathy that was likely secondary to the Ifosfamide as there was no other explanation. She had no evidence of tumor lysis syndrome and electrolytes, phosphate, and calcium stayed normal or stable. She did require 3 doses of rasburicase to control uric acid. Approximately 48 hours after completing Ifosfamide, mental status cleared significantly and she was transferred to the floor. On the day of discharge, she was sitting in a chair working on computer and paying bills. A single dose of intrathecal methotrexate, 12 mg, was given through the Ommaya reservoir on June 17. She tolerated this well. DISCHARGE DIAGNOSES: 1. Diffuse large B-cell lymphoma involving CSF. 2. Metabolic encephalopathy likely secondary to Ifosfamide, resolved. 3. Respiratory failure, resolved. DISCHARGE ACTIVITY: Up as tolerated. DISCHARGE DIET: Regular as tolerated. DISCHARGE MEDICATIONS: Tylenol with Codeine as needed. DISCHARGE DISPOSITION: The patient will be seen on June 20 in the office for a repeat evaluation and probable intrathecal methotrexate. DISCHARGE PROGNOSIS: Guarded. Job ID: [id number]
== END 2018-06-17 14:40 | disposition home or self-care (01) | DRG 823 ==
LOC: ONC 10:26 → CCU 06-10 12:28 → ONC 06-15 16:32
PROVIDERS: ADMIT Internal Medicine Hematology & Oncology; ATTEND Internal Medicine Hematology & Oncology
PROC: 00H633Z Insertion of Infusion Device into Cerebral Ventricle, Percutaneous Approach (ICD-10-PCS; principal; 2018-06-10)
PROC: 3E0 Administration, Physiological Systems and Anatomical Regions, Introduction (ICD-10-PCS; 2018-06-10)
PROC: 8E09XBG Computer Assisted Procedure of Head and Neck Region, With Computerized Tomography (ICD-10-PCS; 2018-06-10)
PROC: 5A1935Z Respiratory Ventilation, Less than 24 Consecutive Hours (ICD-10-PCS; 2018-06-10)
PROC: 0BH17EZ Insertion of Endotracheal Airway into Trachea, Via Natural or Artificial Opening (ICD-10-PCS; 2018-06-10)
PROC: 30233R1 Transfusion of Nonautologous Platelets into Peripheral Vein, Percutaneous Approach (ICD-10-PCS; 2018-06-10)
DX: C83.38 Diffuse large B-cell lymphoma, lymph nodes of multiple sites (principal); J96.01 Acute respiratory failure with hypoxia; G93.41 Metabolic encephalopathy; J91.0 Malignant pleural effusion; J94.8 Other specified pleural conditions; E87.3 Alkalosis; E78.5 Hyperlipidemia, unspecified; I10 Essential (primary) hypertension; R83.6 Abnormal cytological findings in cerebrospinal fluid; T45.1X5A Adverse effect of antineoplastic and immunosuppressive drugs, initial encounter; Z87.891 Personal history of nicotine dependence; Z88.8 Allergy status to other drugs, medicaments and biological substances
CPT/HCPCS: 36415; 36416; 36430; 70553; 71045; 80053; 80500; 82248; 82805; 83615; 84100; 84443; 84550; 85025; 86850; 86900; 86901; 94002; 94003; 94640; 94660; A9579; J0131; J1100; J1200; J1453; J1940; J2001; J2250; J2405; J2469; J2505; J2704; J2783; J3010; J3490; J7050; J7070; J7620; J9045; J9208; J9209; J9250; J9310; P9035

== ENCOUNTER 2018-06-19 13:47 | Inpatient (IN) | payer BC ==
[2018-06-19 14:31] LABS: Hemoglobin 6.9 g/dL (12.0-16.0); Mean Corpuscular Hemoglobin 28.7 pg (27.0-31.0); Mean Platelet Volume 14.2 fL (7.4-10.4); Platelet Count 2 thou/uL (130-400); RBC Distribution Width 12.7 % (11.5-14.5); Red Blood Cell (RBC) Count 2.42 mill/uL (4.20-5.40); White Blood Cell (WBC) Count 0.1 thou/uL (4.8-10.8)
[2018-06-19 14:44] LABS: ALT (SGPT) 81 U/L (8-55); AST (SGOT) 211 U/L (5-34); Albumin 3.2 g/dL (3.4-4.8); Alkaline Phosphatase 114 U/L (40-150); Anion Gap 17 mmol/L (10-20); BUN (Urea Nitrogen) 43 mg/dL (9.8-20.1); Bilirubin, Total 1.6 mg/dL (0.2-1.2); Calc. Creatinine Clearance 0 mL/min (70-130); Calcium 8.8 mg/dL (7.8-10.44); Carbon Dioxide 21 mmol/L (23-31); Chloride 104 mmol/L (98-107); Estimated GFR-MDRD 29; Globulin 2.7 g/dL (2.4-3.5); Glucose 122 mg/dL (80-115); Potassium 3.9 mmol/L (3.5-5.1); Protein, Total 5.9 g/dL (6.0-8.3); Sodium 138 mmol/L (136-145)
--- NOTE | 2018-06-19 14:47 | RAD ---
RADIOGRAPH CHEST 1 VIEW: Date: 06/19/2018. Time: 1:14 p.m. HISTORY: A 62-year-old female on chemotherapy who presents with hypoxia. COMPARISON: 06/15/2018. FINDINGS: Right subclavian implantable vascular access port remains with distal tip at the right atrium. Small , partially loculated, left pleural effusion is again noted. With differences in patient position th ere is greater visualization of the left lower lobe, revealing mild streaky densities in that locatio n. This is nonspecific, and could represent atelectasis, although pneumonia is difficult to exclude. There is a new finding of a small faint ill-defined nodular density overlying the right mid lung zo ne. Uncertain whether this is artifact. No cardiomegaly or pneumothorax. No pulmonary edema. Ther e is a thin caliber left-sided pleural catheter ascending from the base, with distal tip near the ape x. IMPRESSION: 1. Small left pleural effusion. 2. Nonspecific mild pulmonary densities at left lower lobe. 3. Small caliber left pleural catheter. 4. No pulmonary edema. MIKAELA [] POS: JOHNNY
[2018-06-19] MEDS ORDERED: Acetaminophen 650 MG Suppository ONE (14:51)
[2018-06-19] MEDS ORDERED: cefTRIAXone\\ROCEPHIN 2 GM VIAL ONE (14:51)
[2018-06-19 15:17] LABS: Bilirubin Negative (Negative); Blood, Urine Large (Negative); Clarity TURBID (Clear); Glucose, Urine (Dipstick) Negative (Negative); Leukocyte Negative (Negative); Nitrite Positive (Negative); Protein, Urine (Dipstick) 100 mg/dL (Neg-Trace); Specific Gravity, Urine 1.015 (1.002-1.036); Urobilinogen 0.2 mg/dL (0.2-1.0); pH, Urine 5.5 (5.0-9.0)
[2018-06-19 15:19] LABS: Pathc Cast-AUWi Flag 9.88 (0-2.49); RBC/HPF 0-3 HPF (0-3)
[2018-06-19] MEDS ORDERED: Piperacillin/Tazobactam 4.5 GM VIAL ONE (15:21)
[2018-06-19] MEDS ORDERED: Norepinephrine 8 MG/0.9% NS 250 ML ONE (15:21)
[2018-06-19] MEDS ORDERED: Water For Inject, Bacteriostat 30 ML ONE (15:21)
[2018-06-19] MEDS ORDERED: methylPREDNISolone Sod Succ/PF 125 MG/2 ML VIAL ONE (15:21)
[2018-06-19] MEDS ORDERED: diphenhydrAMINE 50 MG/ML VIAL ONE (15:23)
[2018-06-19 15:29] LABS: Crystals/HPF 1+ AMORPH URATES HPF (Negative); Hyaline Casts/LPF 0-3 HYALINE CAST LPF (0-3 Hyaline); Other Casts/LPF 7-10 COARSE GRAN LPF (0-3 Hyaline)
[2018-06-19 15:30] LABS: Bacteria/HPF 2+ HPF (None Seen); Renal Epithelial 0-3 HPF (0-3); Squamous Epithelial 0-3 HPF (0-3); Transitional Epithelial 0-3 HPF (0-3)
[2018-06-19] MEDS ORDERED: Loperamide HCl 2 MG CAP PO PRN (16:26)
[2018-06-19] MEDS ORDERED: Acetaminophen 325 MG TAB PO PRN (16:26)
[2018-06-19] MEDS ORDERED: Ondansetron PF 4 MG/2 ML Vial IVP PRN (16:26)
[2018-06-19] MEDS ORDERED: Ondansetron ODT 4 MG TAB PO PRN (16:26)
--- NOTE | 2018-06-19 17:04 | CT ---
CT HEAD WITHOUT CONTRAST: Technique: Multiple contiguous axial images were obtained through the head without IV enhancement. Indications: Hypoxia, history of lymphoma. Confusion. FINDINGS: There is no prior head CT, however, comparison is made to a brain MRI of 06-09-18. There are skin tyler in the superior scalp over the right frontal bone with craniotomy defect and a right ventricular shunt catheter in place via the right frontal lobe. The catheter extends through t he right lateral ventricle and tip overlies the midline. Ventricular size is within normal range. There is no evidence of intracranial mass, hemorrhage, or infarct. Sinuses and mastoids are clear. IMPRESSION: No acute process. There is a ventricular shunt catheter in place through the right frontal lobe. Vent ricular size is within normal range. POS: JOHNNY
[2018-06-19] MEDS ORDERED: Sodium Chloride 0.9% 1,000 ML IV SCH ×2 (18:21→20:15)
[2018-06-19 18:50] LABS: Lactic Acid 1.1 mmol/L (0.5-2.2)
[2018-06-19] MEDS ORDERED: Norepinephrine 8 MG/250 ML BAG IVPB PRN (18:51)
[2018-06-19 19:27] LABS: Actual Bicarbonate (HCO3a) 21.3 mEq/L (22-28); Base Excess (BEa) -2.3 mEq/L (-2.0 to +3.0); CO2 Tension 31.3 mmHg (35.0-45.0); Calcium, Ionized 1.03 mmol/L (1.12-1.30); Carboxyhemoglobin (COHb) 0.9 gm% (0.0-3.0); Hemoglobin (Hb) 7.7 g/dL (12.0-16.0); O2 Tension (PaO2) 81.3 mmHg (> 80.0); pH, Arterial 7.45 (7.35-7.45)
[2018-06-19 19:30] LABS: Puncture Site RBRACH
[2018-06-19 19:54] VITALS: BP 103/55
[2018-06-19] MEDS ORDERED: Micafungin 100 MG in Sodium Chloride 0.9% 100 ML IVPB SCH (20:00)
[2018-06-19] MEDS: Scopolamine 1.5 mg/72 hour Patch TD SCH (20:30)
[2018-06-19] MEDS: Diabetic Tussin 200 MG/10 ML UDCUP PO SCH (20:33)
[2018-06-19] MEDS ORDERED: Famotidine/PF 20 mg/2ml Vial SLOW IVP SCH (21:00)
[2018-06-19] MEDS: Linezolid 600 MG in Premix Bag 1 BAG IVPB SCH (21:20)
[2018-06-19] MEDS: Meropenem 2 GM in Sodium Chloride 0.9% 100 ML IVPB SCH (21:39)
--- NOTE | 2018-06-20 00:24 | CON ---
DATE OF CONSULTATION: 06/19/2018 HISTORY OF PRESENT ILLNESS: Kika Wallace is a 62-year-old female, well known to me. She just went home from the hospital. She presented back today with tachypnea and a temperature of 105 with the associated tachycardia. She subsequently has been admitted to the critical care unit. PAST MEDICAL HISTORY: Most pertinent, recently is remarkable for placement of a PleurX catheter for recurrent lymphoma, which involves her central nervous system or pleural space and a peripheral blood, i.e., bone marrow. She undergone induction therapy for her chemo and had the associated side effects with her chemo of confusion which resolved over a few days after chemo. She looks great when she went home on Wednesday. Please see my last dictation for other issues surrounding her recent past. PHYSICAL EXAMINATION: VITAL SIGNS: Temperature is down to 99. She has significant mucositis involving the lips and mouth. Respiratory rate is in the 20s, oximetry is 94, reported on a high-flow cannula at 35%. Heart rate is 113. Blood pressure is 102/55, respiratory rate is in the high 20s. HEAD AND NECK: Exam is unremarkable. CHEST: Remarkable for mild rhonchi. HEART: Regular rhythm. ABDOMEN: Soft. EXTREMITIES: Without clubbing, cyanosis, or edema. DIAGNOSTIC DATA: She has no significant increase in pleural fluid on the radiograph. IMPRESSION: Status post recent chemotherapy for recurrent lymphoma, stage IV. I believe she has had a good response to her initial chemo, although she is now pancytopenic with a white count of 100, hemoglobin 6.9, and a platelet count of 2. She really did not eat anything or eat much for last 2 days, so we are aggressively hydrating her plus we are going to give her 3 units of packed cells as well as platelets. Her antimicrobial therapy would be very broad until the cultures come back. Met with the and family and answered all the questions. Critical care time 30 minutes. Job ID: [id number] MTDD
[2018-06-20] MEDS: Diabetic Tussin 200 MG/10 ML UDCUP PO SCH ×4 (02:47→20:59)
[2018-06-20] MEDS: Sodium Chloride 0.9% 1,000 ML IV SCH ×2 (05:24→15:26)
[2018-06-20 06:05] LABS: Anion Gap 15 mmol/L (10-20); BUN (Urea Nitrogen) 40 mg/dL (9.8-20.1); Calc. Creatinine Clearance 34 mL/min (70-130); Calcium 7.8 mg/dL (7.8-10.44); Carbon Dioxide 19 mmol/L (23-31); Chloride 110 mmol/L (98-107); Estimated GFR-MDRD 31; Glucose 136 mg/dL (80-115); Potassium 3.6 mmol/L (3.5-5.1); Sodium 140 mmol/L (136-145)
[2018-06-20] MEDS: Meropenem 2 GM in Sodium Chloride 0.9% 100 ML IVPB SCH ×2 (06:08→13:48)
[2018-06-20 06:19] LABS: Hemoglobin 9.2 g/dL (12.0-16.0); Mean Corpuscular HGB CONC 32.9 g/dL (32.0-36.0); Mean Corpuscular Hemoglobin 28.8 pg (27.0-31.0); Mean Corpuscular Volume 87.6 fL (78.0-98.0); Mean Platelet Volume 9.2 fL (7.4-10.4); Platelet Count 22 thou/uL (130-400); RBC Distribution Width 12.7 % (11.5-14.5); Red Blood Cell (RBC) Count 3.18 mill/uL (4.20-5.40); White Blood Cell (WBC) Count Less than 0.1 thou/uL (4.8-10.8)
--- NOTE | 2018-06-20 07:06 | HP ---
CHIEF COMPLAINT: Neutropenic fever with hypoxia. HISTORY OF PRESENTING ILLNESS: This is a 62-year-old female with history of recurrent metastatic large beta-cell lymphoma, presented with severe neutropenic fever and hypoxia. The patient's history is significant for recently diagnosed large beta-cell lymphoma in 08/2017. The patient had undergone 6 cycles of CHOP/Rituxan treatment and she had completed the treatment in 12/2017 and the following PET scan was negative post treatment indicating a complete remission, but unfortunately last month, the patient came back with increasing shortness of breath and on further investigation, it was seen that the patient had large metastasis in her brain and also in the lung, pleura, and abdominal nodes. The pathology revealed diffuse large beta-cell lymphoma with molecular evidence of double-hit. The lumbar puncture was performed and that was flow positivity for large beta cell lymphoma. The patient then underwent stereotactic-assisted placement of ventricular catheter and fluid reservoir for CSF chemotherapy. She also had pleural effusion drained and a catheter was left in place for any subsequent fluid accumulation. The patient had restarted chemotherapy 10 days ago here in the hospital and because of severe allergic reaction to it, the chemotherapy was discontinued, and hope was for the patient to stabilize enough for her to be transferred to the [facility] for continuation of the chemotherapy. Unfortunately, the patient presented today to the ER with increasing shortness of breath, O2 saturations less than 85%, and repeated falls and was seemed to be in septic shock with hypotension, tachycardia, increased respiratory rate, and a fever. The patient was admitted for further management. On admission, her WBC was 0.1, hemoglobin 6.9, and a platelet count of 2.1 along with elevated LFTs, AST 211, ALT 81, and total bilirubin of 1.6. Here, the urine wbc was 11 to 20, leukocyte esterase was negative, nitrite was positive with a large blood. Chest x-ray showed small left pleural effusion and nonspecific mild pulmonary densities in the lower lobes. Brain CT revealed a ventricular shunt catheter in place through the right frontal lobe and ventricular size was within normal limits. No evidence of intracranial mass, hemorrhage, or infarct seen. The patient was then treated with IV fluids, Levophed, Rocephin, Zosyn, and vancomycin. The patient had reaction to vancomycin, which was discontinued and treated with IV steroids and Benadryl. The patient was then transferred to intensive medical care unit for further treatment, where she was started on meropenem and Zyvox. Consult has been made to Dr. Raman, Dr. Bradley, and Dr. Boggs. PAST MEDICAL HISTORY: Significant for recurrent lymphoma. PAST SURGICAL HISTORY: Significant for stereotactic placement of ventricular device for medication delivery. Left thoracentesis with left chest tube in place. ALLERGIES: THE PATIENT IS ALLERGIC TO TIZANIDINE, TRAMADOL, AND VANCOMYCIN. REVIEW OF SYSTEMS: CONSTITUTIONAL: Positive for fever, hypoxia, feeling very fatigued. HEENT: Negative for any eye pain or discharge from the eyes, any ear pain or discharge from the ears. No rhinorrhea. Denies any sore throat. Significant lesions in the oral mucosa and on the tongue. Swollen lips and tongue. NECK: No nodules felt in the neck. Good range of motion. Trachea is midline. RESPIRATORY: Complains of shortness of breath, cough, and wanted to clear the secretions, but unable to do so. CHEST: Denies any chest pain or palpitations. GI: Denies any abdominal pain, constipation, diarrhea, or nausea. GENITOURINARY: Denies any dysuria or increased frequency. MUSCULOSKELETAL: Repeated fall since morning. Denies any pain. SKIN: Some petechial rashes on ankles, feet, and bilateral knees. NEUROLOGIC: Does report some confusion. Denies any headache, paralysis, or paresthesias. PHYSICAL EXAMINATION: VITAL SIGNS: On admission, pulse 145, respiratory rate 32, temperature 98.3, O2 saturation 97%, and blood pressure of 140/119. Subsequent blood pressure was 78/58, pulse 145, respiratory rate 40, O2 saturation 100% on 4 L of oxygen, and temperature 104 per rectal. CONSTITUTIONAL: The patient looks extremely sick, tired, fatigued, and critically ill. HEENT: There is a large stapled incision on the right frontal part of the head, which is healing well. Eye examination is within normal limits. Eyelids are normal to inspection. Pupils are round and reactive to light. Extraocular muscle movements are intact. External ear examination is within normal limits. External ears, canals, and tympanic membranes are within normal limits. Oral mucosa is dry with ulcerations on the lips and tongue. The lip and the tongue look swollen. NECK: Neck examination is within normal limits with normal range of motion. Trachea is in midline. No meningeal signs. No cervical lymphadenopathy or tenderness. RESPIRATORY AND CHEST: Respiratory distress was seen, plus rales, coarse breath all over. CARDIOVASCULAR: Tachycardic heart rate. No murmurs. No gallop. ABDOMEN: Soft and nontender. Bowel sounds are normal. No distention. No pulsatile masses. EXTREMITIES: Within normal limits except some scattered petechial rash all over the skin. NEUROLOGIC: Alert and oriented x3. Cranial nerves intact. All the 4 extremities are moving normally. No motor or sensory deficit noted. ASSESSMENT: 1. Septic shock. 2. Neutropenic fever. 3. Large beta-cell lymphoma metastasis. 4. Severe pancytopenia. PLAN: To execute neutropenic precautions. The patient has been started on meropenem and Zyvox. Blood and urine cultures are drawn and results are pending. Control the fever with acetaminophen p.o./IV. IV fluids to treat hypotension along with Levophed, which is being titrated to keep the blood pressure 100/60. Critically ill patient and she is DNR and prognosis is guarded. Job ID: [id number]
[2018-06-20] MEDS ORDERED: Acetaminophen 650 MG/20.3 ML UDCUP PER TUBE PRN (08:27)
[2018-06-20] MEDS: Acetaminophen 1,000 MG in Premix Bag 1 BAG IVPB PRN ×2 (08:39→21:19)
[2018-06-20] MEDS: Linezolid 600 MG in Premix Bag 1 BAG IVPB SCH (08:41)
[2018-06-20] MEDS: Aluminum & Magnesium Hydroxide 60 ML, Lidocaine 2% Viscous Solution 30 ML, diphenhydrAM... SSW PRN ×2 (10:56→19:00)
[2018-06-20] MEDS: Pantoprazole 40 MG VIAL IVP SCH (10:59)
--- NOTE | 2018-06-20 12:51 | PRG ---
DATE OF SERVICE: 06/20/2018 SUBJECTIVE: Ms. Wallace is off pressors. States she is feeling about the same. Her main complaint is her mouth hurts. She has trouble swallowing because of her stomatitis. OBJECTIVE: LUNGS: Her lungs are remarkable for few rhonchi for the most part. She is clear. HEART: Regular rhythm. ABDOMEN: Soft and nontender. EXTREMITIES: Without asymmetry. LABORATORY DATA: White count is less than 100 white cells, hemoglobin 9.2, and platelets 22,000, after platelet transfusion yesterday. Electrolytes; sodium 140, potassium 3.6, chloride 110, bicarb 19, BUN 40, and creatinine 1.69. IMPRESSION AND PLAN: 1. Pancytopenia after new induction therapy for lymphoma. 2. Status post encephalopathy with her induction chemotherapy. 3. Pseudomonas bacteremia presumably from a Pseudomonas urinary tract infection. Infectious Disease has been consulted. We will try to get her some mouth swabs that help with her mouth discomfort. It is likely that she will end up with a Dobbhoff tube for nutritional support as her bone marrow recovers. She is adamant that she is never going to be intubated and fairly adamant that she will never have BiPAP again. We will continue with supportive care. Discussed the above with Dr. Bradley from Infectious Disease and Dr. Boggs of Oncology. Job ID: [id number]
--- NOTE | 2018-06-20 16:04 | PDOC.PN ---
- Subjective Encounter Start Date: 06/20/18 Encounter Start Time: 16:03 Subjective: sleepy, on oxygen, does not want intubation or bipap - Objective Resuscitation Status - Order Detail: 06/19/18 16:26 Resuscitation Status Routine Resuscitation Status: DNAR: NO Resuscitation Discussed with: ER Physician, previously made DNR MAR Reviewed: Yes Vital Signs & Weight: Vital Signs (12 hours) Temp Pulse Ox 06/20/18 11:59 99.3 F 06/20/18 10:00 100.2 F H 06/20/18 08:00 102.5 F H 100 Weight Admit Weight 144 lb Weight 144 lb 9.972 oz Most Recent Monitor Data Heart Rate from ECG 99 NIBP 109/64 NIBP BP-Mean 79 Respiration from ECG 25 SpO2 97 I&O: 06/19/18 06/20/18 06/21/18 06:59 06:59 06:59 Intake Total 3080 Output Total 600 775 Balance 2480 -775 Result Diagrams: 06/20/18 04:35 06/20/18 04:35 Phys Exam - Physical Examination HEENT: PERRLA oral ulcerations Neck: no JVD, supple, full ROM +coarse breath sounds, decreased from yesterday Tachy, no murmur Gastrointestinal: soft, non-tender, no distention, positive bowel sounds Musculoskeletal: no edema, pulses present sleepy, not respoding Dx/Plan (1) Septic shock Code(s): A41.9 - SEPSIS, UNSPECIFIED ORGANISM; R65.21 - SEVERE SEPSIS WITH SEPTIC SHOCK Status: Acute Comment: Continue abx, follow up on blood and urine cx, neutropenic precaution. DNR patient. Pancytopenia with induction chemo. (2) Pancytopenia Code(s): D61.818 - OTHER PANCYTOPENIA Status: Acute Comment: S/P transfusion of platelets and PRBC, trend CBC (3) B-cell lymphoma of lymph nodes of multiple regions Code(s): C85.18 - UNSPECIFIED B-CELL LYMPHOMA, LYMPH NODES OF MULTIPLE SITES Status: Acute Comment: Initial diagnosis in Aug, followed by 6 cycles of chemo , patient was cancer free in January. 2 weeks ago presented with SOB and extensive mets all over. [facility] and a chest tube for draining the pleural effusion. Last week had one cycle of chemo. Presntly plan is to atabilize patient enough that they can start treatment in [place] (4) Neutropenic fever Code(s): D70.9 - NEUTROPENIA, UNSPECIFIED; R50.81 - FEVER PRESENTING WITH CONDITIONS CLASSIFIED ELSEWHERE Status: Acute - Plan cont current plan of care, plan discussed w/ family, continue antibiotics * .
[2018-06-20] MEDS ORDERED: Amikacin Sulfate 1,000 MG in Sodium Chloride 0.9% 100 ML IVPB SCH (16:15)
[2018-06-20] MEDS: SODIUM CHLORIDE 0.9% IVPB SCH (21:25)
[2018-06-20] MEDS: MEROPENEM IVPB SCH (21:25)
--- NOTE | 2018-06-20 22:25 | CON ---
DATE OF CONSULTATION: 06/20/2018 REASON FOR CONSULTATION: Neutropenia with fever. HISTORY OF PRESENT ILLNESS: A 62-year-old patient who has a history of B-cell lymphoma, previously in remission and now with recurrence with lung and [employer] involvement as well as intra-abdominal lymph nodes. The patient had an Ommaya reservoir placement and had a pleural catheter left in place for management of malignant pleural effusion. The patient has been treated with chemotherapy and this included intrathecal methotrexate. The patient then developed worsening dyspnea with hypoxemia, weakness and was brought into the emergency room where she was septic along with agranulocytosis, anemia, and low platelet count. The chest x- ray showed small left pleural effusion and some pulmonary densities. Brain CT with the Ommaya reservoir with normal ventricular sizes, and no intracranial mass noted. Reportedly, had a reaction to vancomycin, which was discontinued. She has been transferred to intensive care. She is right now awake, but has a hard time interacting with the examiner. She establishes eye contact, but is unable to answer questions. She will follow some commands after some insistence. She has had no diarrhea. PAST MEDICAL HISTORY: B-cell lymphoma previously in remission, now with relapse involving lungs, [employer], pleura, and intra-abdominal lymph nodes. PAST SURGICAL HISTORY: Ommaya reservoir placement and pleural catheter. ALLERGIES: TIZANIDINE, TRAMADOL, VANCOMYCIN. CURRENT MEDICATIONS: 1. Linezolid. 2. Meropenem. 3. Micafungin. 4. Ondansetron. SOCIAL HISTORY: Former smoker. Smoked for 40 years. She just recently quit. Lives with family. FAMILY HISTORY: Noncontributory. PHYSICAL EXAMINATION: VITAL SIGNS: T-max 102.5, which seems to be somewhat of a recrudescence of fever after admission, BP 109/64, pulse 99, respiratory rate 25, O2 saturation 97%. SKIN: Shows an opening right above the pleural catheter. This opening is packed. It is kind of oval-shaped wound with red tissue at the base. Below it, there is the pleural catheter exit site with a slight erythema and few areas of bruising noted. No area of erythema in the left presacral region. She has an area of bruising on the nose bridge with a little bit of a scab overlying it. She has a little bit of submammary erythema on the left side. The patient has a port in the right subclavian location and an Ommaya reservoir surgical site still with metal sutures. No lymphadenopathy. HEENT: Ocular movements are conjugate. Sclerae are white. Oral cavity was difficult to evaluate because of lack of cooperation. LUNGS: With somewhat coarse breath sounds. Symmetric air entry, S1, S2. Regular rate without murmurs. ABDOMEN: Soft, not distended or tender. No ascites. No bladder distention. GENITOURINARY: The patient is voiding in the bedpan. I's and O's were positive over the past 24 hours. Now, she has started negative; today, -700 mL. EXTREMITIES: The patient is able to move extremities and hips and she has 1+ edema in lower extremities. Pulses 1+ in dorsalis pedis. Plantar response are flexor. NEUROLOGIC: She is awake. She is able to establish eye contact, falls asleep frequently and has a hard time following commands. LABORATORY DATA: The white cell count is still less than 0.1, hemoglobin 9.2, platelets 22,000. Sodium 140, creatinine 1.69. AST 211, ALT 81, albumin 3.2. Urinalysis with 11 to 20 wbcs. Microbiology with Pseudomonas aeruginosa in urine as well as 2 sets of venous samples. IMAGING STUDIES: Include a chest x-ray and it showed small left pleural effusion and mild pulmonary densities, left lower lobe and a vascular port. She had a brain MRI on June 09, 2018, which demonstrated chronic small vessel ischemic change , white matter, no acute infarct. She had a previous echocardiogram, which was done in May this year with EF 60%, but no other major abnormalities with a small pericardial effusion. ASSESSMENT: B-cell lymphoma with relapse with resumption of chemotherapy including intrathecal methotrexate through an Ommaya reservoir. The patient now presents with agranulocytosis and Pseudomonas aeruginosa bacteremia, which probably comes from the urinary tract. The Pseudomonas strains here in the hospital are susceptible to meropenem, up to 95%, 5% are resistant. No evidence of Omaya reservoir involvement yet. We will add amikacin one dose until we have susceptibilities tomorrow and withhold linezolid for now and micafungin as well. Job ID: [id number] [facility]
[2018-06-21] MEDS: Sodium Chloride 0.9% 1,000 ML IV SCH ×3 (00:20→21:10)
[2018-06-21] MEDS: Morphine 4 MG/ML VIAL SLOW IVP PRN ×2 (00:20→21:10)
--- NOTE | 2018-06-21 01:21 | CON ---
DATE OF CONSULTATION: 06/20/2018 TYPE OF CONSULTATION: Cardiology REASON FOR CONSULTATION: Tachycardia. HISTORY OF PRESENT ILLNESS: Ms. Kika Wallace is a delightful 62-year-old woman. The patient has a history of lymphoma. She presented to the hospital yesterday with hypotension. She responded to pressors and antibiotics. Her mouth was very sore. She has no chest pain or pressure. The patient overall is doing better today, still very sick however. She has a long history of lymphoma as outlined in the chart. PAST MEDICAL HISTORY: Recurrent lymphoma, hypertension and hypercholesterolemia. PAST SURGICAL HISTORY: Negative for cardiac operations or procedures. REVIEW OF SYSTEMS: GENERAL: Positive for fever, hypoxia, and fatigue. VISION: She has no vision changes. MOUTH: She has a very sore mouth. RESPIRATORY: Positive for shortness of breath. CARDIAC: No chest pain. GASTROINTESTINAL: Positive for sore mouth. PHYSICAL EXAMINATION: GENERAL: This is a very pleasant patient. VITAL SIGNS: Her blood pressure has improved to 130/70, pulse is 110, sinus. EYES: Sclerae nonicteric. MOUTH: Mucous membranes moist. NECK: Supple. No lymphadenopathy. LUNGS: Clear. No wheezing, rales, or rhonchi. CARDIAC: Normal S1. Normal S2. There is no murmur, rub, or gallop. ABDOMEN: Soft, nontender. EXTREMITIES: No clubbing, cyanosis, or edema. ASSESSMENT: 1. Hypotension, resolved. 2. Sinus tachycardia secondary to underlying problems including anemia, also leukopenic. PLAN: Continue supportive care. No further intervention from a cardiac standpoint. Job ID: [id number]
[2018-06-21] MEDS: Diabetic Tussin 200 MG/10 ML UDCUP PO SCH ×4 (02:30→21:24)
[2018-06-21] MEDS: SODIUM CHLORIDE 0.9% IVPB SCH ×3 (05:15→21:31)
[2018-06-21] MEDS: MEROPENEM IVPB SCH ×3 (05:15→21:31)
[2018-06-21] MEDS: Aluminum & Magnesium Hydroxide 60 ML, Lidocaine 2% Viscous Solution 30 ML, diphenhydrAM... SSW PRN ×2 (05:30)
[2018-06-21] MEDS: Pantoprazole 40 MG VIAL IVP SCH (08:49)
--- NOTE | 2018-06-21 10:56 | PRG ---
DATE OF SERVICE: 06/21/2018 SUBJECTIVE: The patient is seen and examined at bedside. She feels somewhat better than yesterday, but she is still not able to swallow anything. Her mouth is sore. She has also seen her mouth and her lips are swollen. OBJECTIVE: VITAL SIGNS: Blood pressure is 124/68, pulse is 100 beats per minute, respiratory rate is , and O2 saturation is 96% on room air. SKIN: Bruised. HEENT: Her face is swollen. Tongue has multiple ulcers covered with some scabs. Pupils are responding to light properly. Conjunctivae are palish. NECK: Supple. LUNGS: Breath sounds diminished at both bases. HEART: S1 and S2, somewhat tachycardic. No S3. No S4. ABDOMEN: Soft. Mildly tender on deeper palpation. No guarding. No masses. No organomegaly. EXTREMITIES: 1+ peripheral edema similar bilaterally on lower extremities. NEUROLOGIC: She follows my commands. She is able to move her all four extremities. LABORATORY DATA: CBC is pending. Sodium of 140, potassium 3.6, chloride 110, CO2 of 19, BUN 40, creatinine 1.69, glucose 136, calcium 7.8. Microbiology is growing Pseudomonas aeruginosa in blood cultures 2/2. Urine culture is pansensitive. IMPRESSION: 1. Pseudomonas aeruginosa bacteremia. 2. Granulocytosis. 3. B-cell lymphoma with relapse with resumption of chemotherapy including intrathecal methotrexate through an Ommaya reservoir. 4. Severe pancytopenia. 5. Severe dehydration with elevated BUN and creatinine. 6. Status post Ommaya reservoir for placement with right frontal part of the head, large stapled incision which is healing well. DISCUSSION: The patient was seen by Dr. Bradley yesterday. He stopped Zyvox and micafungin. The patient is on meropenem at this point. Pseudomonas is sensitive to multiple antibiotics. We will ask him for further recommendations, but for now we will continue meropenem. We will continue mouthwash and oral hygiene for her oral ulcers and swelling. We will transfuse her with platelets if the platelets are low on this morning. CBC, which is still pending. Then, the Dobhoff tube will be placed and we will start feeding her with the formula. We will rehydrate her with IV fluids and fluids through the Dobhoff tube. We will continue supportive care. Job ID: [id number]
[2018-06-21 10:57] LABS: Hemoglobin 9.2 g/dL (12.0-16.0); Mean Corpuscular HGB CONC 32.9 g/dL (32.0-36.0); Mean Corpuscular Hemoglobin 29.1 pg (27.0-31.0); Mean Corpuscular Volume 88.6 fL (78.0-98.0); Mean Platelet Volume 13.3 fL (7.4-10.4); Platelet Count 10 thou/uL (130-400); RBC Distribution Width 13.3 % (11.5-14.5); Red Blood Cell (RBC) Count 3.16 mill/uL (4.20-5.40); White Blood Cell (WBC) Count 0.1 thou/uL (4.8-10.8)
[2018-06-21 12:19] LABS: Bite Cells SLIGHT = 2-5 cells (100X) (0-1/hpf); MDiff Complete? YES; PLT Morphology Comment Appears Decreased; Polychromasia SLIGHT = 2-3 cells (100X) (0-2/hpf)
--- NOTE | 2018-06-21 14:11 | EKG ---
Test Reason : Blood Pressure : / mmHG Vent. Rate : 139 BPM Atrial Rate : 139 BPM P-R Int : 116 ms QRS Dur : 072 ms QT Int : 290 ms P-R-T Axes : 084 053 058 degrees QTc Int : 441 ms Sinus tachycardia Nonspecific ST abnormality Abnormal ECG Confirmed by JOB BRAUN DO ([id number]), science editor LIZ LLAMAS ([id number] on 06/21/2018 2:11:48 PM Referred By: Confirmed By:JOB BRAUN DO
--- NOTE | 2018-06-21 15:57 | PRG ---
DATE OF SERVICE: 06/21/2018 SERVICE: Pulmonary Medicine. INTERVAL HISTORY: The patient is doing okay from respiratory standpoint. She is breathing comfortably. She has a toxic appearance about her. That being said, I am told that she actually looks better than yesterday. She is very thirsty. She has not been able to tolerate any p.o. She is using frequent Magic mouthwash in order to palliate some of her discomfort in her head and neck area. PHYSICAL EXAMINATION: VITAL SIGNS: Currently afebrile. Her last true temperature was yesterday at 8 o'clock in the morning. HEENT: Normocephalic and atraumatic. Sclerae white. Conjunctivae pink. Oral mucosa is dry. Multiple lesions are present on her mucosa. LUNGS: Decent air entry. Dependent crackles are minimal. HEART: Normal rate, regular. ABDOMEN: Soft, nontender, and nondistended. Bowel sounds are positive. MUSCULOSKELETAL: No cyanosis or clubbing. There is no pitting in the bilateral lower extremities. NEUROLOGIC: Grossly nonfocal. LABORATORY DATA: WBC 0.1, hemoglobin 9.2, platelets 10. PH 7.45, pCO2 of 31, pO2 of 81. Creatinine 1.69, remaining elevated. BUN 40. Basic metabolic profile is otherwise unremarkable. Lactate 1.1 and downtrending. Pseudomonas aeruginosa is growing in the urine. This is a pansensitive organism. It is likely the same thing that is growing in 2/2 blood cultures. Influenza A and B are negative. ASSESSMENT: 1. Acute hypoxic respiratory failure. 2. Septic shock. 3. Bacteremia secondary to Pseudomonas. 4. Urinary tract infection secondary to Pseudomonas. 5. Pancytopenia following induction therapy for lymphoma ([facility]). DISCUSSION AND PLAN: We will continue our supportive care moving forward. We will check a CBC. If she has adequate platelets, we will consider placing Dobhoff tube for nutritional support. We can likely deescalate the antibiotics, but I will leave that to Dr. Bradley. Pulmonary Critical Care will continue to follow along. Dr. Raman will resume care in the morning. Job ID: [id number]
[2018-06-21] MEDS: Acyclovir Sodium 350 MG in Sodium Chloride 0.9% 100 ML IVPB SCH (21:10)
[2018-06-21] MEDS: Bacitracin Zinc 1 Packet TOP SCH (21:28)
--- NOTE | 2018-06-22 00:51 | CON ---
DATE OF CONSULTATION: Ms. Wallace is a 63-year-old woman, who put a PleurX catheter in approximately a month ago on the left. One of the incisions from the thoracoscopy at the same setting has opened. There is really no evidence of any healing of this incision whatsoever. There was no exposed tubing from the PleurX catheter. The edges are and the subcutaneous fat is easily visible. She has been on chemotherapy. Her white blood cell count is currently less than 1. I have recommended bacitracin ointment b.i.d. to this wound and then a dry dressing to cover it inside. Job ID: [id number]
[2018-06-22] MEDS: Diabetic Tussin 200 MG/10 ML UDCUP PO SCH ×4 (02:30→20:07)
[2018-06-22] MEDS: Morphine 4 MG/ML VIAL SLOW IVP PRN ×3 (03:43→21:21)
[2018-06-22] MEDS: SODIUM CHLORIDE 0.9% IVPB SCH ×3 (05:37→21:24)
[2018-06-22] MEDS: MEROPENEM IVPB SCH ×3 (05:37→21:24)
[2018-06-22 06:05] LABS: Hemoglobin 9.4 g/dL (12.0-16.0); Mean Corpuscular HGB CONC 33.2 g/dL (32.0-36.0); Mean Corpuscular Hemoglobin 29.9 pg (27.0-31.0); Mean Corpuscular Volume 90.1 fL (78.0-98.0); Mean Platelet Volume 8.5 fL (7.4-10.4); Platelet Count 47 thou/uL (130-400); RBC Distribution Width 13.5 % (11.5-14.5); Red Blood Cell (RBC) Count 3.14 mill/uL (4.20-5.40); White Blood Cell (WBC) Count 0.3 thou/uL (4.8-10.8)
[2018-06-22 06:08] LABS: Anion Gap 14 mmol/L (10-20); BUN (Urea Nitrogen) 46 mg/dL (9.8-20.1); Calc. Creatinine Clearance 59 mL/min (70-130); Calcium 8.6 mg/dL (7.8-10.44); Carbon Dioxide 23 mmol/L (23-31); Chloride 123 mmol/L (98-107); Estimated GFR-MDRD 55; Glucose 113 mg/dL (80-115); Sodium 157 mmol/L (136-145)
[2018-06-22 06:11] LABS: Potassium 2.9 mmol/L (3.5-5.1)
[2018-06-22] MEDS ORDERED: Magnesium 2 GM/NS 0.9% 100 ML 2 GM in Premix Bag 1 BAG IVPB PRN (06:31)
[2018-06-22] MEDS ORDERED: Potassium Phosphate 9 MMOL in Sodium Chloride 0.9% 100 ML IVPB PRN (06:31)
[2018-06-22] MEDS ORDERED: Potassium Chloride 20 MEQ TAB PO PRN (06:31)
[2018-06-22] MEDS ORDERED: CCU ELECTROLYTE REPLACEMENT PROTOCOL FS PRN (06:31)
[2018-06-22] MEDS ORDERED: Magnesium Oxide 400 MG TAB PO PRN ×2 (06:31)
[2018-06-22] MEDS ORDERED: Potassium Phosphate 12 MMOL in Sodium Chloride 0.9% 250 ML 250 ML IV PRN (06:31)
[2018-06-22] MEDS ORDERED: Potassium Phosphate 15 MMOL in Sodium Chloride 0.9% 250 ML 250 ML IV PRN (06:31)
[2018-06-22] MEDS ORDERED: Potassium Chloride 40 MEQ in Sodium Chloride 0.9% 250 ML 250 ML IVPB PRN (06:31)
--- NOTE | 2018-06-22 09:09 | PRG ---
DATE OF SERVICE: 06/21/2018 SUBJECTIVE: Ms. Wallace is awake. She is feeling much better. Still has quite a bit of stomatitis that hinders her oral intake. No respiratory symptoms or chest pain. No abdominal pain or diarrhea. Voiding without difficulty. OBJECTIVE: VITAL SIGNS: T-max 99.4. White cell count still 0.1. HEENT: Severe stomatitis with areas of necrosis, round-shaped punched-out ulcers in the palate and lips and tongue. LUNGS: Clear. HEART: S1, S2. Regular rate. ABDOMEN: Soft, not distended. Port access. Urinating in the bedpan. Microbiology with a very susceptible strain of Pseudomonas aeruginosa. ASSESSMENT AND DISCUSSION: B-cell lymphoma with recurrence in chemotherapy with severe neutropenia, receiving intrathecal methotrexate through an Ommaya reservoir, presenting with agranulocytosis and pseudomonas bacteremia probably from urinary tract. The patient has severe stomatitis, which could be related with herpes simplex. Submit cultures. Start acyclovir. Continue meropenem. Wait on improvement of neutrophil count. Job ID: [id number]
[2018-06-22] MEDS: Pantoprazole 40 MG VIAL IVP SCH (09:41)
[2018-06-22] MEDS: Bacitracin Zinc 1 Packet TOP SCH ×2 (09:41→20:34)
[2018-06-22] MEDS: Acyclovir Sodium 350 MG in Sodium Chloride 0.9% 100 ML IVPB SCH ×2 (09:41→20:32)
[2018-06-22] MEDS: Sodium Chloride 0.9% 1,000 ML IV SCH (09:48)
[2018-06-22] MEDS: Potassium Chloride 40 MEQ in Premix Bag 1 BAG IVPB PRN (11:59)
[2018-06-22] MEDS: Dextrose 5% in Water 1,000 ML IV SCH (12:43)
[2018-06-22] MEDS ORDERED: Lidocaine 2% Jelly 5 ML TUBE TOP SCH (13:00)
--- NOTE | 2018-06-22 15:34 | PRG ---
DATE OF SERVICE: 06/22/2018 SUBJECTIVE: The nurse tried to put the Dobbhoff tube just 15 minutes ago and the patient is agitated and she did not tolerate the procedure, so it was aborted because of her response. OBJECTIVE: VITAL SIGNS: Blood pressure is 145/82, pulse is 103, respiratory rate is 26, and temperature is 98.0. HEENT: She has a stitched area of the frontoparietal area, that is from Ommaya reservoir placement for chemotherapy intrathecal. This area looks good. The incision looks clean. Her eyes, pupils are responding to light properly. She has a big scabbed area on her nose. Her lips are less swollen and ulcerations in her mouth are significantly diminished. LUNGS: Breath sounds are somewhat diminished at both bases. HEART: S1 and S2. Tachycardic. No S3. No S4. ABDOMEN: Soft and nontender. EXTREMITIES: No clubbing, cyanosis, or edema. NEUROLOGIC: She follows my commands. She moves her all 4 extremities. LABORATORY DATA: Showed white count of 0.3, hemoglobin 9.4, hematocrit 28.3, and platelet count is 47,000. Sodium of 157, potassium 2.9, chloride 123, BUN 46, creatinine 1.01, glucose is 113, and calcium 8.6. Microbiology, nothing new. Urine and two blood cultures positive for Pseudomonas aeruginosa. IMPRESSION: 1. Pseudomonas aeruginosa bacteremia, most likely from urinary tract infection. 2. Granulocytosis, improving. 3. B-cell lymphoma resumption of chemotherapy including intrathecal methotrexate through an Ommaya reservoir. 4. Severe pancytopenia. 5. Severe dehydration, improved with IV fluids. 6. Hypernatremia and hyperchloremia. We will change her IV fluids to D5 water. 7. Hypokalemia. We will supplement her today. We will check her magnesium. 8. Status post Ommaya reservoir right frontal part of the head large stapled incision, which is healing well. 9. Inability to access the enteral feeding routes. The patient failed Dobbhoff placement just 20 minutes ago. 10. Acute stomatitis. The patient was seen by Dr. Bradley, who recommends to use acyclovir along with her antibiotic, which is meropenem. Job ID: [id number]
[2018-06-22] MEDS ORDERED: Morphine 2 MG/ML SYRINGE SLOW IVP PRN (16:12)
--- NOTE | 2018-06-22 17:07 | PRG ---
DATE OF SERVICE: 06/22/2018 Ms. Wallace remains in the critical care unit. She has very small strength reserve. We tried to place a Dobhoff for the feeding. She really could not cooperate with this and became tachycardic and tachypneic after the attempts. She is given a small dose of morphine (2 mg). I suspect this will help. Lungs, heart, and abdomen are otherwise unchanged. White count is 300 today. Her platelets were 47,000. Hemoglobin was 9.4 g. Electrolytes were normal except for low potassium. Her sodium is a total of 157. IV fluids have been changed to D5W. May try again tomorrow sedated to do that, but lidocaine jelly in her nose and hurricane spray in her flow to see if we can get the tube down. Hold off given her reaction to the attempt today. Hopefully, the swallowing will slowly gets return towards normal. Job ID: [id number]
[2018-06-22 18:37] LABS: Potassium 3.4 mmol/L (3.5-5.1)
[2018-06-22] MEDS: Scopolamine 1.5 mg/72 hour Patch TD SCH (20:31)
[2018-06-23] MEDS: Dextrose 5% in Water 1,000 ML IV SCH ×2 (01:23→15:23)
[2018-06-23] MEDS: Morphine 4 MG/ML VIAL SLOW IVP PRN ×2 (02:22→14:17)
[2018-06-23] MEDS: Diabetic Tussin 200 MG/10 ML UDCUP PO SCH ×5 (02:25→21:10)
[2018-06-23] MEDS: SODIUM CHLORIDE 0.9% IVPB SCH ×3 (05:06→21:10)
[2018-06-23] MEDS: MEROPENEM IVPB SCH ×3 (05:06→21:10)
[2018-06-23 06:30] LABS: Hemoglobin 10.5 g/dL (12.0-16.0); Mean Corpuscular HGB CONC 32.9 g/dL (32.0-36.0); Mean Corpuscular Hemoglobin 29.8 pg (27.0-31.0); Mean Corpuscular Volume 90.6 fL (78.0-98.0); Mean Platelet Volume 9.9 fL (7.4-10.4); Platelet Count 12 thou/uL (130-400); RBC Distribution Width 13.8 % (11.5-14.5); Red Blood Cell (RBC) Count 3.53 mill/uL (4.20-5.40); White Blood Cell (WBC) Count 1.2 thou/uL (4.8-10.8)
[2018-06-23 06:37] LABS: Anion Gap 12 mmol/L (10-20); BUN (Urea Nitrogen) 52 mg/dL (9.8-20.1); Calc. Creatinine Clearance 73 mL/min (70-130); Calcium 8.9 mg/dL (7.8-10.44); Carbon Dioxide 23 mmol/L (23-31); Chloride 124 mmol/L (98-107); Estimated GFR-MDRD 68; Glucose 154 mg/dL (80-115); Potassium 3.2 mmol/L (3.5-5.1); Sodium 156 mmol/L (136-145)
[2018-06-23] MEDS: Potassium Chloride 40 MEQ in Premix Bag 1 BAG IVPB PRN (06:44)
[2018-06-23 06:48] LABS: Band 21 % (5-11); Lymphocytes 11 % (21-51); MDiff Complete? YES; Monocytes 15 % (0-10); Neutrophil 53 % (42-75); PLT Morphology Comment Appears Decreased
[2018-06-23] MEDS: Acyclovir Sodium 350 MG in Sodium Chloride 0.9% 100 ML IVPB SCH ×2 (09:57→21:10)
[2018-06-23] MEDS: Pantoprazole 40 MG VIAL IVP SCH (09:57)
[2018-06-23] MEDS: Bacitracin Zinc 1 Packet TOP SCH ×2 (09:58→21:10)
--- NOTE | 2018-06-23 14:12 | PDOC.PN ---
- Subjective Encounter Start Date: 06/23/18 Encounter Start Time: 14:10 Subjective: looks weak, attempting to speak, but unable to. - Objective Resuscitation Status - Order Detail: 06/19/18 16:26 Resuscitation Status Routine Resuscitation Status: DNAR: NO Resuscitation Discussed with: ER Physician, previously made DNR MAR Reviewed: Yes Vital Signs & Weight: Vital Signs (12 hours) Temp 06/23/18 03:00 98.0 F Weight Admit Weight 144 lb Weight 149 lb 14.629 oz Most Recent Monitor Data Heart Rate from ECG 102 NIBP 136/91 NIBP BP-Mean 106 Respiration from ECG 17 SpO2 100 I&O: 06/22/18 06/23/18 06/24/18 06:59 06:59 06:59 Intake Total 2893 2016 Output Total 700 1395 Balance 2193 621 Result Diagrams: 06/23/18 06:04 06/23/18 06:04 Phys Exam - Physical Examination weak, cachexic dry oral mucosa, ++ lesions Neck: no nodes, no JVD, supple, full ROM coarse breath sounds Cardiovascular: no significant murmur, no rub Tachy Gastrointestinal: soft, non-tender, no distention, positive bowel sounds Musculoskeletal: no edema, pulses present Neurological: non-focal, normal sensation, moves all 4 limbs Deviation from normal: unabe to assess Dx/Plan (1) Septic shock Code(s): A41.9 - SEPSIS, UNSPECIFIED ORGANISM; R65.21 - SEVERE SEPSIS WITH SEPTIC SHOCK Status: Acute (2) Pancytopenia Code(s): D61.818 - OTHER PANCYTOPENIA Status: Acute Comment: S/P transfusion of platelets and PRBC, trend CBC (3) 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 2 weeks ago presented with SOB and extensive mets all over. She was discharged with omaya for drug delivery and a chest tube for draining the pleural effusion. Last week had one cycle of chemo. Presntly plan is to atabilize patient enough that they can start treatment in [place] (4) Neutropenic fever Code(s): D70.9 - NEUTROPENIA, UNSPECIFIED; R50.81 - FEVER PRESENTING WITH CONDITIONS CLASSIFIED ELSEWHERE Status: Acute (5) Acute hypernatremia Code(s): E87.0 - HYPEROSMOLALITY AND HYPERNATREMIA Status: Acute - Plan cont current plan of care, continue antibiotics, DVT proph w/lovenox * .
[2018-06-23] MEDS: Lorazepam 2 MG/ML VIAL SLOW IVP PRN (16:00)
--- NOTE | 2018-06-23 17:32 | PRG ---
DATE OF SERVICE: 06/23/2018 SUBJECTIVE: Kika Wallace has waxing and waning mental status and inability to handle secretions today. She actually became quite cyanotic late this afternoon, then morphine led to an improvement. I met with the for approximately 45 minutes this afternoon, discussed my opinion that Ms. Wallace will not survive this. Hemodynamics remained stable. The biggest issue is secretions and handling of her secretions. OBJECTIVE: LUNGS: Essentially unchanged. HEART: Essentially unchanged. ABDOMEN: Essentially unchanged. LABORATORY DATA: She is still neutropenic, hemoglobin is 10.5, platelets are 12,000. Sodium 156, potassium 3.2, chloride 124, bicarb 23, BUN 52, and creatinine IMPRESSION: 1. Recurrent aggressive lymphoma, that is widespread. 2. Weakness and deconditioning with an inability to handle her secretions, which will likely lead to her demise. I do not feel she would tolerate another round of chemotherapy and without probably several more rounds of chemo per my discussion with Dr. Boggs, she would not reach a point where she could be considered for bone marrow transplantation. PLAN: We are going to move forward. Continue same medicines, but focusing more on comfort. I met with the and answered all of his questions. Job ID: [id number]
--- NOTE | 2018-06-23 18:42 | PRG ---
DATE OF SERVICE: 06/23/2018 SUBJECTIVE: Ms. Wallace is deteriorated. She is very tired and she has agonal breathing at this time. She is obtunded and she has expressed firmly multiple times that she does not desire any aggressive measures. Family is around the patient and expect that she will in the next few hours. OBJECTIVE: VITAL SIGNS: Actually show normal temperature, BP 185/54, she is tachycardic, respiratory rate of 36, O2 sats 100. HEENT: Oral cavity, ulcers as noted before. LUNGS: Very little air excursions are observed during auscultation. CARDIAC: S1 and S2. Tachycardic. ABDOMEN: Soft. LABORATORY DATA: White cell count is up to 1.2, total neutrophil count is 560. ASSESSMENT AND DISCUSSION: Recurrence of lymphoma with severe neutropenia with Pseudomonas aeruginosa bacteremia, and severe stomatitis, now in the terminal stage with agonal breathing pattern. The patient has opted for a nonaggressive management and will not survive without intubation and mechanical ventilation. Job ID: [id number]
[2018-06-24] MEDS: Dextrose 5% in Water 1,000 ML IV SCH ×2 (04:13→17:50)
[2018-06-24] MEDS: Diabetic Tussin 200 MG/10 ML UDCUP PO SCH ×2 (04:14→10:00)
[2018-06-24] MEDS: Lorazepam 2 MG/ML VIAL SLOW IVP PRN (04:58)
[2018-06-24] MEDS: SODIUM CHLORIDE 0.9% IVPB SCH (06:02)
[2018-06-24] MEDS: MEROPENEM IVPB SCH (06:02)
[2018-06-24 06:29] VITALS: BMI 25.3
[2018-06-24] MEDS: Morphine 4 MG/ML VIAL SLOW IVP PRN (09:56)
[2018-06-24] MEDS: Acyclovir Sodium 350 MG in Sodium Chloride 0.9% 100 ML IVPB SCH (09:59)
[2018-06-24] MEDS: Pantoprazole 40 MG VIAL IVP SCH (09:59)
[2018-06-24] MEDS: Bacitracin Zinc 1 Packet TOP SCH (10:00)
[2018-06-24] MEDS ORDERED: Lorazepam 2 MG/ML VIAL SLOW IVP PRN (10:46)
[2018-06-24] MEDS ORDERED: Morphine 10 MG/ML VIAL SLOW IVP PRN (10:47)
--- NOTE | 2018-06-24 14:32 | PRG ---
DATE OF SERVICE: Kika Wallace somehow survived the night. She is intermittently agitated, so we have increased the dose of morphine and lorazepam. We stopped all other supportive care. The entire family recognizes that there are no therapeutic options for her and that they are just waiting for her to pass. No other change in her exam. We stopped routine blood draws. We are proceeding forward with comfort care. If she continues to survive, she probably can be transferred out late today to the Oncology unit or to another room where family will have easier access. Job ID: [id number]
[2018-06-24 19:38] VITALS: TEMP 97.6
[2018-06-24 23:10] LABS: HSV 2 - DNA Negative (Negative)
--- NOTE | 2018-06-26 17:05 | DIS ---
DATE OF ADMISSION: 06/19/2018 DATE OF DISCHARGE: 06/24/2018 SUMMARY: DATE OF : 06/24/2018. ADMISSION DIAGNOSES: 1. Large beta cell lymphoma, recurrent with metastasis. 2. Septic shock. 3. Neutropenic fever. 4. Severe pancytopenia. DISCHARGE DIAGNOSES: Large beta cell lymphoma, recurrent with metastasis; septic shock, neutropenic fever, severe pancytopenia, leading to . HISTORY OF PRESENTING ILLNESS: This was a 63-year-old female who presented to the ER with increasing weakness, falls, and oral ulcerations, status post chemo for her large beta cell lymphoma recurrence with metastasis. The patient on admission had a pulse rate of 145, respiratory rate of 32, temperature of 98.3, and blood pressure of 140/119. Subsequently, her blood pressure dropped down to 78/58. The patient was admitted to the ICU with neutropenic precautions and was aggressively hydrated and was treated with multiple antibiotics and was kept on neutropenic precautions. The patient's blood and urine cultures grew Pseudomonas eventually. The patient also was treated with acyclovir for her oral ulceration. The patient over the course of time requested to withdraw any treatment repeatedly to her family. Family eventually did make a decision to stop all the aggressive or active treatment and opted for comfort measures only. The patient was then maintained on morphine and Ativan and she peacefully on 06/24/2018. DISCHARGE INSTRUCTIONS: The patient remains to be released to the mortuary. Job ID: [id number]
== END 2018-06-24 14:00 | disposition expired | DRG 871 ==
LOC: ERS 13:47 → CCU 18:04
PROVIDERS: ADMIT Family Medicine; ATTEND Family Medicine
PROC: 30233R1 Transfusion of Nonautologous Platelets into Peripheral Vein, Percutaneous Approach (ICD-10-PCS; principal; 2018-06-19)
PROC: 30233N1 Transfusion of Nonautologous Red Blood Cells into Peripheral Vein, Percutaneous Approach (ICD-10-PCS; 2018-06-19)
PROC: 3E033XZ Introduction of Vasopressor into Peripheral Vein, Percutaneous Approach (ICD-10-PCS; 2018-06-19)
DX: A41.52 Sepsis due to Pseudomonas (principal); R65.21 Severe sepsis with septic shock; J96.01 Acute respiratory failure with hypoxia; D61.810 Antineoplastic chemotherapy induced pancytopenia; E87.0 Hyperosmolality and hypernatremia; Z51.5 Encounter for palliative care; Z66 Do not resuscitate; N39.0 Urinary tract infection, site not specified; C85.13 Unspecified B-cell lymphoma, intra-abdominal lymph nodes; C85.19 Unspecified B-cell lymphoma, extranodal and solid organ sites; E86.0 Dehydration; E87.6 Hypokalemia; K12.1 Other forms of stomatitis; I10 Essential (primary) hypertension; E78.00 Pure hypercholesterolemia, unspecified; Z87.891 Personal history of nicotine dependence; Z88.1 Allergy status to other antibiotic agents; Z88.5 Allergy status to narcotic agent; Z88.8 Allergy status to other drugs, medicaments and biological substances; Z79.899 Other long term (current) drug therapy; T45.1X5A Adverse effect of antineoplastic and immunosuppressive drugs, initial encounter
CPT/HCPCS: 36415; 36430; 51701; 70450; 71045; 80048; 80053; 81003; 81015; 82805; 83605; 85025; 86850; 86900; 86901; 87040; 87077; 87086; 87149; 87186; 87529; 87804; 93005; 94640; 94760; 96365; 96366; 96367; 96375; 99292; A4353; C9113; J0131; J0133; J0278; J0696; J1200; J2020; J2060; J2185; J2248; J2270; J2543; J2930; J3370; J3480; J7050; P9016; P9035; S0028